=== PATIENT | female | born 2000 | race African-American/Black ===

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

== ENCOUNTER → 2022-03-09 | Outpatient (CLI) | payer BC ==
[2022-03-09 17:46] LABS: Basophils # (A) 0.06 X 10*3/uL (0.00-0.10); Basophils % (A) 0.6 %; Eosinophils # (A) 0.28 X 10*3/uL (0.04-0.35); Eosinophils % (A) 2.8 %; HCT 41.3 % (37.2-46.3); HGB 12.7 g/dL (12.0-15.0); Immature Grans, Automated 0.2 %; Lymphocytes # (A) 1.99 X 10*3/uL (0.90-5.00); Lymphocytes % (A) 20.2 %; MCH 26.3 pg (27.0-32.0); MCHC 30.8 g/dL (32.0-37.0); MCV 85.5 fL (80.0-97.0); Mean Platelet Volume 10.1 fL (9.5-12.2); Monocytes # (A) 0.69 X 10*3/uL (0.20-1.00); NRBC Per 100 WBC 0 /100 WBCS (0.0-0.0); Neutrophils # (A) 6.79 X 10*3/uL (1.80-7.70); Neutrophils % (A) 69.2 %; Platelet Count 424 X 10*3/uL (140-440); RBC 4.83 X 10*6/uL (4.10-5.20); RDW 13.8 % (11.5-14.5); WBC 9.83 X 10*3/uL (4.50-10.00)
[2022-03-09 18:13] LABS: African American GFR (CKD) 97.9 (60.0-200.0); Albumin 4.3 g/dL (3.8-4.9); Albumin/Globulin Ratio 1.4 (1.60-3.17); Anion Gap 12.8 mmol/L (10.00-18.00); BUN/Creat Ratio 19.86 Ratio (12.00-20.00); Blood Urea Nitrogen 19.3 mg/dL (9.0-27.0); Calcium 9.7 mg/dL (8.7-10.3); Carbon Dioxide 22.2 mmol/L (20.0-27.5); Globulin 3.1 g/dL (1.6-3.3); Non-African American GFR(CKD) 84.5 (60.0-200.0); Potassium 4.5 mmol/L (3.5-5.5); Total Bilirubin 0.3 mg/dL (0.30-1.20); Total Protein 7.4 g/dL (6.2-8.2)
== END | disposition home or self-care (01) ==
LOC: LABPAT 11:20
PROVIDERS: ATTEND Surgery Plastic and Reconstructive Surgery
DX: Z01.812 Encounter for preprocedural laboratory examination (principal)
CPT/HCPCS: 80053; 85025

== ENCOUNTER 2022-03-13 08:00 | Inpatient (IN) | payer BC ==
--- NOTE | 2022-02-22 16:13 | P.BASOAP ---
Subjective Progress Note Date: 02/22/22 She comes in with 15 pound weight. She has panic attacks. She is dismissed. Diet plan. Medications reviewed. Assessment/Plan Plan: Date: Initial Weight: Initial BMI: Current Weight: Current BMI: Type of Surgery: Total Volume in Band: Previous Volume: Volume Removed: Volume Added: Band Size:
[~2022-03-13 08:00] MED LIST: CHLORHEXIDINE GLUCONATE 15 ML CUP MUCOUS MEM PRN; ENOXAPARIN 40 MG/0.4 ML SYRINGE SQ PRN; PANTOPRAZOLE 40 MG/10 ML VIAL IVP PRN; ceFAZolin 3 GM in SODIUM CHLORIDE 0.9% 100 ML IVPB PRN
[2022-03-13] MEDS ORDERED: DEXAMETHASONE SOD PHOSPHATE 4 MG/ML 1 ML VIAL IV ONE (10:17)
[2022-03-13] MEDS ORDERED: HYDROmorphone 0.5 MG/0.5 ML SYRINGE IVP PRN (10:17)
[2022-03-13] MEDS ORDERED: ONDANSETRON 4 MG/2 ML VIAL IVP ONE (10:17)
--- NOTE | 2022-03-13 10:37 | P.GSHP ---
History of Present Illness H&P Date: 03/13/22 CHIEF COMPLAINT: Morbid obesity HISTORY OF PRESENT ILLNESS: Lani Lacy is a 21-year-old female who comes with lifelong morbid obesity. She has completed a medical supervised weight loss. She has completed psych assessment, cardiac assessment. She has completed bariatric assessment. At height of 5 feet 5 inches, her ideal body weight is 149 pounds. Highest weight 282 pounds, BMI 47.1. She comes in 282 pounds [id number] pounds, 6 months ago. She has gained 7 pounds in 6 months. Her body mass index is 47.1. She is 133 pounds overweight. PAST MEDICAL HISTORY: 1. Morbid obesity due to excess calories 2. Body mass index of 47.1 3. Depressive disorder 4. Gastroesophageal reflux disease 5. Insomnia 6. Seizure disorder 7. Asthma 8. ADD/ADHD 9. Anxiety disorder 10. Bipolar disorder PAST SURGICAL HISTORY: 1. Tonsillectomy 2. Adenoidectomy HOME MEDICATIONS: Home Medications Medication Instructions Recorded Confirmed Cholecalciferol [Vitamin D3 (25 5,000 unit PO DAILY 01/09/18 11/16/21 Mcg = 1000 Iu)] FLUoxetine HCL [PROzac] 60 mg PO QAM 01/09/18 11/16/21 Melatonin 5 - 10 mg PO HS 01/09/18 11/16/21 Atomoxetine HCl [Strattera] 80 mg PO QAM 04/20/21 11/16/21 Imipramine [Tofranil] 25 mg PO HS 04/20/21 11/16/21 Omeprazole 20 mg PO QAM 04/20/21 11/16/21 QUEtiapine FUMARATE [SEROquel] 200 mg PO HS 04/20/21 11/16/21 busPIRone HCL 5 mg PO TID 04/20/21 11/16/21 Albuterol Inhaler [Ventolin Hfa 1 puff IN DAILY PRN 10/20/21 11/16/21 Inhaler] Levalbuterol Hfa Inhaler [Xopenex 1 puff INHALATION DAILY PRN 10/20/21 11/16/21 Hfa Inhaler] busPIRone HCl [Buspar] 5 mg PO TID 11/16/21 11/16/21 ALLERGIES: Allergies Allergy/AdvReac Type Severity Reaction Status Date / Time No Known Allergies Allergy Verified 10/20/21 13:39 FAMILY HISTORY: She is adopted. No family history of stomach or esophageal cancer. REVIEW OF ORGAN SYSTEMS: CONSTITUTIONAL: At height of 5 feet 5 inches, her ideal body weight is 149 pounds. Highest weight 282 pounds, BMI 47.1. She comes in 282 pounds [id number] pounds, 6 months ago. She has gained 7 pounds in 6 months. Her body mass index is 47.1. She is 133 pounds overweight. HEENT: Denies any active troubles with vision or hearing. ENDOCRINE: Denies diabetes. No hypothyroidism. CARDIOVASCULAR: Has hypertensive heart disease. Has persistent tachycardia. RESPIRATORY: Has daytime somnolence. Has asthma. Has chronic obstructive pulmonary disease. GASTROINTESTINAL: Denies any bright red blood per rectum. No diarrhea. No constipation. Has gastroesophageal reflux disease. GENITOURINARY: Denies bladder urgency. No recent blood in urine MUSCULOSKELETAL: Has lower back pain and joint pain. NEURO: Has seizure disorders. PSYCH: Has depression. No suicidal ideation. Has bipolar disorder. Has anxiety. Has ADD/ADHD RHEUMATOLOGIC: No lupus. No rheumatoid arthritis. HEMATOLOGIC: Denies any abnormal bleeding or bruising. SKIN: No rash. No skin cancer. PHYSICAL EXAM: VITAL SIGNS: Height 5 foot 5 inches, weight 282 pounds. BMI 47.1 GENERAL: Well-developed in no acute distress. HEENT: No scleral icterus. Extraocular movements grossly intact. Hears conversational speech. No nasal drainage. NECK: Supple without lymphadenopathy. CHEST: Nonlabored respirations with equal bilateral excursions. CARDIOVASCULAR: Tachycardic. Distal 2+ pulses. ABDOMEN: Obese, soft, nontender, nondistended. MUSCULOSKELETAL: No clubbing, cyanosis. NEURO: No focal or lateralizing signs. Cranial nerves 2 through 12 grossly within normal limits. PSYCH: Appropriate affect. Alert and oriented to person, place and time. SKIN: Good skin turgor. Well perfused. ASSESSMENT: 1. Morbid obesity due to excess calories 2. Body mass index of 45.9, initial 3. Depressive disorder 4. Gastroesophageal reflux disease 5. Insomnia 6. Seizure disorder 7. Asthma 8. ADD/ADHD 9. Anxiety disorder 10. Bipolar disorder 11. Persistent tachycardia 12. Hypertriglyceridemia 13. Hypercholesterolemia 14. Selenium elevated. 15. Elevated LFTs 16. Seizure PLAN: 1. Bariatric options between a sleeve, band and a Keyanna-en-Y gastric bypass were reviewed in detail. The patient elected for a sleeve gastrectomy. Robotic assisted approach described. 2. The [place] [facility] Data was also reviewed with benefits and risks as described. 3. An 8 page second-generation bariatric consent form was reviewed in detail including potential of bleeding, infection, leaks, adequate weight loss, nutritional deficiencies which the patient demonstrated understanding of the risks. 4. A 2 week high-protein low caloric 800 kcal diet described to address hepatom egaly. 5. Preoperative labs including complete metabolic panel and CBC with type and screen recommended. 6. DVT prophylaxis per [place] [facility]. 7. Antibiotic prophylaxis. 8. Inpatient hospitalization anticipated for more than 2 nights. 9. All questions and concerns were addressed with the patient. 10. The patient is at elevated risk for perioperative complications with pre- existing antipsychotic medications 11. Overall, patient has expressed understanding of bariatric care including postoperative diet and commitment of lifestyle. Patient should benefit from [place] rgical intervention for correction of her morbid obesity. Past Medical History Past Medical History: Asthma, Seizure Disorder Additional Past Medical History / Comment(s): LAST SEIZURE JULY 2021. CHAKA, NEUROLOGIST. History of Any Multi-Drug Resistant Organisms: None Reported Past Surgical History: Adenoidectomy, Tonsillectomy Additional Past Surgical History / Comment(s): ORAL SURGERY. Past Anesthesia/Blood Transfusion Reactions: No Reported Reaction Additional Past Anesthesia/Blood Transfusion Reaction / Comment(s): SEVERE ANXIETY. Past Psychological History: ADD/ADHD, Anxiety, Bipolar Additional Psychological History / Comment(s): PANIC ATTACKS (PER MOTHER) Smoking Status: Never smoker, Second hand smoke exposure Past Alcohol Use History: None Reported Past Drug Use History: None Reported - Past Family History Mother Family Medical History: Unable to Obtain Medications and Allergies Home Medications Medication Instructions Recorded Confirmed Type Cholecalciferol [Vitamin D3 (25 5,000 unit PO DAILY 01/09/18 03/09/22 History Mcg = 1000 Iu)] FLUoxetine HCL [PROzac] 60 mg PO QAM 01/09/18 03/09/22 History Melatonin [Melatonin ER] 5 - 10 mg PO HS 01/09/18 03/09/22 History Atomoxetine HCl [Strattera] 80 mg PO QAM 04/20/21 03/09/22 History Omeprazole 20 mg PO QAM 04/20/21 03/09/22 History QUEtiapine FUMARATE [SEROquel] 200 mg PO HS 04/20/21 03/09/22 History busPIRone HCL 5 mg PO TID 04/20/21 03/09/22 History Albuterol Inhaler [Ventolin Hfa 1 puff IN DAILY PRN 10/20/21 03/09/22 History Inhaler] Levalbuterol Hfa Inhaler [Xopenex 1 puff INHALATION DAILY 10/20/21 03/09/22 History Hfa Inhaler] Lumateperone Tosylate [Caplyta] 42 mg PO HS 02/22/22 03/09/22 History Allergies Allergy/AdvReac Type Severity Reaction Status Date / Time No Known Allergies Allergy Verified 03/09/22 14:37
[2022-03-13] MEDS ORDERED: ACETAMINOPHEN TAB 500 MG TAB PO PRN (10:38)
[2022-03-13] MEDS ORDERED: SCOPOLAMINE 1 MG/72 HR PATCH TRANSDERM PRN (10:38)
[2022-03-13] MEDS ORDERED: LIDOCAINE 1% (10MG/ML) FOR IV START INTRADERMA ONE (13:10)
[2022-03-13] MEDS: LACTATED RINGERS 1,000 ML IV SCH ×2 (13:13→14:08)
[2022-03-13] MEDS ORDERED: KETOROLAC 15 MG/ML 1 ML VIAL ONE (14:04)
[2022-03-13] MEDS ORDERED: KETAMINE 10 MG/ML 20 ML VIAL ONE (14:04)
[2022-03-13] MEDS ORDERED: ROCURONIUM 10 MG/ML (5 ML VIAL) IV ONE (14:04)
[2022-03-13] MEDS ORDERED: SUCCINYLCHOLINE CHLORIDE 200 MG/10 ML VIAL IV ONE (14:04)
[2022-03-13] MEDS ORDERED: HYDROmorphone (PF) 1 MG/ML ONE (14:04)
[2022-03-13] MEDS ORDERED: fentaNYL (PF) 50 MCG/ML 2 ML AMP ONE (14:04)
[2022-03-13] MEDS ORDERED: PROPOFOL 10 MG/ML 20 ML VIAL IV ONE (14:04)
[2022-03-13] MEDS ORDERED: MIDAZOLAM 2 MG/2 ML VIAL ONE (14:04)
[2022-03-13] MEDS ORDERED: LIDOCAINE 2% INJ 20 MG/ML (2 ML VIAL) ONE (14:04)
[2022-03-13] MEDS ORDERED: NEOSTIGMINE 1 MG/ML 10 ML VIAL ONE (14:04)
[2022-03-13] MEDS ORDERED: GLYCOPYRROLATE 0.2 MG/ML 2 ML VIAL ONE (14:04)
[2022-03-13] MEDS ORDERED: PHENYLEPHRINE-0.9% NACL SYG 1,000 MCG/10 ML SYRINGE ONE (14:04)
[2022-03-13] MEDS ORDERED: LACTATED RINGERS 1,000 ML IV ONE (15:00)
[2022-03-13] MEDS ORDERED: BUPIVACAINE (PF) 0.25% 30 ML VIAL SQ ONE (15:02)
[2022-03-13] MEDS ORDERED: diphenhydrAMINE 50 MG/ML 1 ML VIAL IVP PRN (16:43)
[2022-03-13] MEDS ORDERED: NALOXONE 0.4 MG/ML 1 ML VIAL IV PRN ×2 (16:43→22:08)
--- NOTE | 2022-03-13 16:53 | P.OP ---
Date of Procedure: 03/13/22 Description of Procedure: SURGEON: LUDIN ADAMS MD PREOPERATIVE DIAGNOSES: 1. Morbid obesity due to excess calories 2. Body mass index of 47.1 3. Depressive disorder 4. Gastroesophageal reflux disease 5. Insomnia 6. Seizure disorder 7. Asthma 8. ADD/ADHD 9. Anxiety disorder 10. Bipolar disorder 11. Persistent tachycardia 12. Hypertriglyceridemia 13. Hypercholesterolemia 14. Selenium elevated. 15. Elevated LFTs 16. Seizure POSTOPERATIVE DIAGNOSES: 1. Morbid obesity due to excess calories 2. Body mass index of 47.1 3. Depressive disorder 4. Gastroesophageal reflux disease 5. Insomnia 6. Seizure disorder 7. Asthma 8. ADD/ADHD 9. Anxiety disorder 10. Bipolar disorder 11. Persistent tachycardia 12. Hypertriglyceridemia 13. Hypercholesterolemia 14. Selenium elevated. 15. Elevated LFTs 16. Seizure OPERATION: 1. Robotic assisted daVinci Xi laparoscopic sleeve gastrectomy with 40-[place]an bougie, multiport. 2. Intraoperative esophagogastroduodenoscopy. ANESTHESIA: Gen. local anesthetic ESTIMATED BLOOD LOSS: 5 mL SPECIMENS REMOVED: Sleeve gastrectomy COMPLICATIONS: None. FINDINGS: 1. Negative intraoperative esophagogastrojejunoscopy leak test. 2. No hepatomegaly and no large hiatus hernia. 3. Total of 6 staplers used including 2 - 60 mm green robot mary and 4 - 60 mm blue robot loads used to create the gastric sleeve. 4. Sleeve gastrectomy, 21 x 4 cm INDICATIONS: Lani Lacy is a 21-year-old female who comes with lifelong morbid obesity. She has completed a medical supervised weight loss. She has completed psych assessment, cardiac assessment. She has completed bariatric assessment. At height of 5 feet 5 inches, her ideal body weight is 149 pounds. Highest weight 282 pounds, BMI 47.1. She is 133 pounds overweight. All surgical options for morbid obesity had been described using the [place] [facility]ariat[facility] collaborative comorbidity resolution including complication risk score. A second-generation bariatric consent form was described in detail including the possibility of protein malnutrition, leaks, gastric stricture, venous thrombosis, gastroesophageal reflux disease, need for further surgery for which she demonstrated understanding. Benefits and risks of the procedure were described at length. Informed consent was obtained. DESCRIPTION: The patient was brought into the operating room theater. Preoperatively she had received Lovenox subcutaneously for DVT prophylaxis. Additionally she had Peridex oral solution as an oral decontaminant. After general induction, the abdomen was prepped and draped in standard sterile fashion. An Ioban draping was placed along the abdomen. A robotic da Ismael Xi system was prepped and primed. At 15 cm from the xiphoid, proposed port sites were marked with indelible marker along the anterior axillary line bilaterally, mid axillary line bilaterally with each ports were marked 10 to 15 cm from each other. The robotic stapler port was marked for the right midclavicular line. A 5 mm 0 degrees laparoscopic trocar entry was performed along the left upper quadrant. The abdomen was insufflated to 15 mmHg pressure was tolerated well. Diagnostic laparoscopy demonstrated no injury to bowel, viscera, or mesentery. No evidence of large hiatus hernia was identified. The liver edge was sharp consistent with 2 week low-carb high-protein diet. A 8 mm port was placed along the left upper abdominal wall after exchanging the 5 mm port. A separate 8 mm port was placed along the left lateral abdominal wall. Please note that the ports were placed at least 20 cm away from the target anatomy. Care was taken to check each robotic arms were safely away from collision with the bed or the patient. At the epigastrium, a medium sized Gerardo liver retractor was placed under direct visualization with the Iron Security Guard placed under the right shoulder of the patient. Next, 12-mm robot stapler port was placed along the right upper quadrant. The camera 8-mm port was maintained along the epigastrium. The patient was repositioned in reverse Trendelenburg position at 21-degrees after lowering the bed. The robot was docked along the left side of the patient. Using a grasper for arm 4, a vessel sealer for arm 3, including grasper for arm 1, the robotic system was docked and primed as described. Instruments were interchanged by the assistant womens volleyball coach for stapler loads. The camera was placed at 30- degrees down. I had sat at the console. The pylorus was identified and 6 cm proximally along the greater curvature of the stomach, the short gastrics were mobilized upwards to the angle of His using a vessel sealer. Hemostasis was excellent dur ing this portion of the procedure. Next, the upper pole of the stomach was adherent to the left olivier, which was gently dissected free using atraumatic grasper. I went to the head of the bed and placed 40-[place]an blunt bougie into the stomach. The bougie was readjusted by the nurse research methodologist. Robotic stapler green load 60 mm 2 followed by blue 60 mm x 4 loads were used to create the sleeve. Initial firing was across the antrum of the stomach towards the angle of His. The staple line was linear without corkscrewing. The space from the angularis incisura of the sleeve was approximately 4 cm. The spleen was buried along the gastric cardia with careful dissection performed without injury to the spleen. I then went to the head of the bed to perform the intraoperative esophagogastroduodenoscopy leak test. The bougie was withdrawn. The upper pole of the stomach was bathed using normal saline solution. The scope was withdrawn with careful inspection along the staple line for which no leaks were found along the entire length. Additionally,the sleeve was completely hemostatic without any encroachment along the angularis incisura. Its topology was a soft "J". No stricture was encountered upon placement of the scope. The GI tract was desufflated. The patient tolerated this portion of the procedure well. The scope was completely withdrawn. The robot was undocked. I then rescrubbed into case, whereby the irrigation fluid was aspirated from the abdominal cavity. Tisseel fibrin sealant was placed along the entire staple length. Once dried the Gerardo liver retractor was removed. Attention was now brought to removal of the specimen. The distal end of the sleeve gastrectomy specimen was brought out through the 12 mm port at the left upper quadrant. The specimen was gently removed en total. No contamination had occurred during this process. All instruments and pneumoperitoneum including irrigation fluid was removed from the abdominal cavity. The 12 mm port site was closed using 0-Vicryl and [place]esto Gallegos and irrigated with diluted hydrogen peroxide. The final incisions were closed using subcuticular interrupted suture of 4-0 Monocryl. Exofin was applied to the skin once the skin had been cleansed. OptiFoam dressing was placed along the stomach extraction site. The sleeve specimen was measured and checked also for leaks which none were found. At the end of the procedure, needle, sponge, and instrument count was verified correct by the surgical appliances salesperson. The patient was taken to the postanesthesia care unit in stable condition. She had tolerated the procedure well. Intraoperative films and findings were reviewed with the patient's family.
[2022-03-13] MEDS: ONDANSETRON 4 MG/2 ML VIAL IVP SCH (18:36)
[2022-03-13] MEDS: ACETAMINOPHEN IV (For NPO) 1,000 MG in EMPTY BAG 1 BAG IVPB SCH (19:52)
[2022-03-13] MEDS ORDERED: DEXAMETHASONE SOD PHOSPHATE 10 MG/ML 1 ML VIAL IVP ONE (20:00)
[2022-03-13] MEDS: ALBUTEROL NEBULIZED 2.5 MG/3 ML INHALATION SCH (20:15)
[2022-03-13] MEDS: SODIUM CHLORIDE 0.9% 1,000 ML IV SCH ×2 (20:29→21:51)
[2022-03-13] MEDS: SIMETHICONE 40 MG/0.6 ML DROPS 2,000 MG/30 ML BOTTLE PO SCH (21:53)
[2022-03-13] MEDS: HYOSCYAMINE ORAL DROPS 1.875 MG/15 ML BOTTLE PO SCH (21:53)
[2022-03-13] MEDS ORDERED: fentaNYL PCA 500 MCG/50 ML BAG IV PRN (22:08)
[2022-03-13] MEDS ORDERED: HYDROmorphone 1 MG/ML 1 ML SYRINGE IVP PRN (22:09)
[2022-03-13] MEDS: 0.9% NACL WITH KCL 20 MEQ/L 1,000 ML IV SCH (22:24)
[2022-03-13] MEDS: ceFAZolin 3 GM in SODIUM CHLORIDE 0.9% 100 ML IVPB SCH (23:25)
[2022-03-13] MEDS: PANTOPRAZOLE 40 MG/10 ML VIAL IV SCH (23:25)
[2022-03-14] MEDS: ONDANSETRON 4 MG/2 ML VIAL IVP SCH ×3 (00:24→12:07)
[2022-03-14] MEDS: DEXAMETHASONE SOD PHOSPHATE 4 MG/ML 1 ML VIAL IVP SCH ×3 (00:24→12:07)
[2022-03-14] MEDS: HYOSCYAMINE ORAL DROPS 1.875 MG/15 ML BOTTLE PO SCH ×3 (00:26→12:11)
[2022-03-14] MEDS: SIMETHICONE 40 MG/0.6 ML DROPS 2,000 MG/30 ML BOTTLE PO SCH ×3 (00:26→12:11)
[2022-03-14] MEDS: ACETAMINOPHEN IV (For NPO) 1,000 MG in EMPTY BAG 1 BAG IVPB SCH ×3 (02:39→13:28)
[2022-03-14] MEDS: 0.9% NACL WITH KCL 20 MEQ/L 1,000 ML IV SCH ×2 (05:30→07:27)
[2022-03-14] MEDS: ceFAZolin 3 GM in SODIUM CHLORIDE 0.9% 100 ML IVPB SCH (05:31)
[2022-03-14 07:16] VITALS: RESP 16
[2022-03-14] MEDS: LACTATED RINGERS 1,000 ML IV SCH (07:28)
[2022-03-14] MEDS ORDERED: 0.9% NACL WITH KCL 20 MEQ/L 1,000 ML IV SCH (08:00)
[2022-03-14] MEDS: PANTOPRAZOLE 40 MG/10 ML VIAL IV SCH (08:03)
[2022-03-14] MEDS: ALBUTEROL NEBULIZED 2.5 MG/3 ML INHALATION SCH ×3 (08:17→16:25)
[2022-03-14] MEDS ORDERED: ENOXAPARIN 40 MG/0.4 ML SYRINGE SQ SCH (09:00)
--- NOTE | 2022-03-14 09:39 | P.PN ---
Subjective Progress Note Date: 03/14/22 Pain is controlled. Patient getting nebulizer treatment. Tolerating liquids. No reports of nausea or vomiting. She looks well. Pending upper GI. Start bariatric clears. Anticipated discharge today. Discharge instructions reviewed with patient and mother preoperatively. Bariatric center staff to revisit this afternoon. Objective - Vital Signs Vital signs: Vital Signs Temp 98.6 F 03/14/22 07:14 Pulse 93 03/14/22 08:27 Resp 16 03/14/22 07:14 BP 130/78 03/14/22 07:14 Pulse Ox 93 L 03/14/22 08:17 FiO2 Intake & Output 03/13/22 03/14/22 03/14/22 18:59 06:59 18:59 Intake Total 1750 Output Total 20 815 400 Balance 1730 -815 -400 Weight 128.3 kg 128.3 kg Intake: IV 1750 Output: Urine 815 400 Straight 815 Estimated Blood Loss 20 Other: # Voids 0
--- NOTE | 2022-03-14 09:53 | FL ---
EXAMINATION TYPE: FL UGI DATE OF EXAM: 03/14/2022 COMPARISON: NONE HISTORY: Postop bariatric surgery TECHNIQUE: A single contrast UGI study is performed. A total of 39 seconds of fluoroscopic time was utilized during procedure and 5 images obtained. FINDINGS: Fingerprint Technician image of the abdomen shows no gross abnormality. The esophagus shows normal motility and emptying into the stomach. No evidence of obstruction or ext ravasation noted. Could not exclude a tiny amount of free air likely postsurgical. Subsegmental rios es at both lung bases likely in the basis of postoperative atelectasis IMPRESSION: No evidence of obstruction or extravasation.
[2022-03-14 11:07] LABS: Basophils # (A) 0 X 10*3/uL (0.00-0.10); Basophils % (A) 0 %; Eosinophils # (A) 0 X 10*3/uL (0.04-0.35); Eosinophils % (A) 0 %; HCT 37.9 % (37.2-46.3); HGB 11.9 g/dL (12.0-15.0); Immature Grans, Automated 0.3 %; Lymphocytes # (A) 0.38 X 10*3/uL (0.90-5.00); MCH 26.7 pg (27.0-32.0); MCHC 31.4 g/dL (32.0-37.0); MCV 85.2 fL (80.0-97.0); Mean Platelet Volume 10.7 fL (9.5-12.2); Monocytes % (A) 3.2 %; NRBC Per 100 WBC 0 /100 WBCS (0.0-0.0); Neutrophils % (A) 90.5 %; Platelet Count 352 X 10*3/uL (140-440); RBC 4.45 X 10*6/uL (4.10-5.20); RDW 13.6 % (11.5-14.5)
[2022-03-14 11:21] VITALS: BMI 47.0
[2022-03-14 11:33] LABS: African American GFR (CKD) 123.9 (60.0-200.0); Anion Gap 13.7 mmol/L (10.00-18.00); Blood Urea Nitrogen 8.2 mg/dL (9.0-27.0); Calcium 8.9 mg/dL (8.7-10.3); Carbon Dioxide 17.3 mmol/L (20.0-27.5); Non-African American GFR(CKD) 106.9 (60.0-200.0); Phosphorus 3.3 mg/dL (2.4-5.1); Potassium 4.7 mmol/L (3.5-5.5)
[2022-03-14 11:37] LABS: Magnesium 1.8 mg/dL (1.5-2.4)
[2022-03-14 11:46] VITALS: BP 130/80; TEMP 98.4
[2022-03-14 16:38] VITALS: PULSE 85
--- NOTE | 2022-03-14 17:31 | P.DS ---
Providers Date of admission: 03/13/22 12:07 Expected date of discharge: 03/14/22 Attending physician: Nettie Simmons Primary care physician: Lance Mosley Plan - Discharge Summary Discharge Rx Participant: No New Discharge Prescriptions: New Omeprazole [PriLOSEC] 40 mg PO DAILY #30 cap Acetaminophen Tab [Tylenol Tab] 1,000 mg PO Q6HR PRN #30 tablet PRN Reason: Pain bisacodyL [Dulcolax] 5 mg PO DAILY PRN #10 tab PRN Reason: Constipation Simethicone 40 mg/0.6 ml Drops [Mylicon Drops] 40 mg PO PCHS PRN #30 ml PRN Reason: Gas Ondansetron Odt [Zofran Odt] 4 mg PO Q8HR PRN #9 tab PRN Reason: Nausea Continue Melatonin [Melatonin ER] 5 - 10 mg PO HS FLUoxetine HCL [PROzac] 60 mg PO QAM Atomoxetine HCl [Strattera] 80 mg PO QAM QUEtiapine FUMARATE [SEROquel] 200 mg PO HS Albuterol Inhaler [Ventolin Hfa Inhaler] 1 puff IN DAILY PRN PRN Reason: Shortness Of Breath Or Wheezing busPIRone HCL 5 mg PO TID Levalbuterol Hfa Inhaler [Xopenex Hfa Inhaler] 1 puff INHALATION DAILY Lumateperone Tosylate [Caplyta] 42 mg PO HS Discontinued Cholecalciferol [Vitamin D3 (25 Mcg = 1000 Iu)] 5,000 unit PO DAILY Omeprazole 20 mg PO QAM Discharge Medication List FLUoxetine HCL [PROzac] 60 mg PO QAM 01/09/18 [History] Melatonin [Melatonin ER] 5 - 10 mg PO HS 01/09/18 [History] Atomoxetine HCl [Strattera] 80 mg PO QAM 04/20/21 [History] QUEtiapine FUMARATE [SEROquel] 200 mg PO HS 04/20/21 [History] busPIRone HCL 5 mg PO TID 04/20/21 [History] Albuterol Inhaler [Ventolin Hfa Inhaler] 1 puff IN DAILY PRN 10/20/21 [History] Levalbuterol Hfa Inhaler [Xopenex Hfa Inhaler] 1 puff INHALATION DAILY 10/20/21 [History] Lumateperone Tosylate [Caplyta] 42 mg PO HS 02/22/22 [History] Acetaminophen Tab [Tylenol Tab] 1,000 mg PO Q6HR PRN #30 tablet 03/14/22 [Rx] Omeprazole [PriLOSEC] 40 mg PO DAILY #30 cap 03/14/22 [Rx] Ondansetron Odt [Zofran Odt] 4 mg PO Q8HR PRN #9 tab 03/14/22 [Rx] Simethicone 40 mg/0.6 ml Drops [Mylicon Drops] 40 mg PO PCHS PRN #30 ml 03/14/22 [Rx] bisacodyL [Dulcolax] 5 mg PO DAILY PRN #10 tab 03/14/22 [Rx] Follow up [facility]ment(s[facility] [facility] [place] [place] [facility] - 03/17/22 9:00 am Patient Instructions/Handouts: *Surgery [facility] - Scopalamine Patch Instructions, Nutrition after Bariatric Surgery (DC), Laparoscopic Sleeve Gastrectomy (DC) Activity/Diet/Wound Care/Special Instructions: Liquid diet only for 2 weeks until Apr 03 No lifting over 4 pounds in 4 weeks, Apr 13December Shower. No soaking in bath tubs, until Apr 03 Please notify your surgeon if you develop nausea and vomiting including new onset of abdominal pain. Continue to use incentive spirometry to prevent pneumonias. Please continue to ambulate at home to prevent blood clots in legs. Follow-up at the bariatric center. May shower. Dressings to be discontinued by surgeon in the office. Drink 64 oz of fluid daily. Start protein shakes on . Notify bariatric center for temp over 101.0, increased pain, drainage from incisions. No straws or carbonated beverages. Liquid diet only. Sugar content should be less than 6 g to avoid dumping syndrome. Take MOM for constipation. CRUSH, OPEN, OR CUT TABLETS LARGER THAN A SIZE OF A TIC TAC Discharge Disposition: HOME SELF-CARE
== END 2022-03-14 18:51 | disposition home or self-care (01) | DRG 621 ==
LOC: 2ORMAIN 12:07 → 4SSUR 17:41
PROVIDERS: ADMIT Surgery Plastic and Reconstructive Surgery; ATTEND Surgery Plastic and Reconstructive Surgery
PROC: 8E0W4CZ Robotic Assisted Procedure of Trunk Region, Percutaneous Endoscopic Approach (ICD-10-PCS; principal; 2022-03-13 13:25)
PROC: 0DB64Z3 Excision of Stomach, Percutaneous Endoscopic Approach, Vertical (ICD-10-PCS; principal; 2022-03-13 13:25)
PROC: 0DJ08ZZ Inspection of Upper Intestinal Tract, Via Natural or Artificial Opening Endoscopic (ICD-10-PCS; principal; 2022-03-13 13:25)
DX: E66.01 Morbid (severe) obesity due to excess calories (principal); I11.9 Hypertensive heart disease without heart failure; E78.00 Pure hypercholesterolemia, unspecified; F31.9 Bipolar disorder, unspecified; J44.9 Chronic obstructive pulmonary disease, unspecified; G40.909 Epilepsy, unspecified, not intractable, without status epilepticus; E78.1 Pure hyperglyceridemia; K21.9 Gastro-esophageal reflux disease without esophagitis; G47.00 Insomnia, unspecified; F90.9 Attention-deficit hyperactivity disorder, unspecified type; F41.0 Panic disorder [episodic paroxysmal anxiety]; R79.89 Other specified abnormal findings of blood chemistry; Z77.22 Contact with and (suspected) exposure to environmental tobacco smoke (acute) (chronic); Z79.899 Other long term (current) drug therapy
CPT/HCPCS: 74240; 80051; 81025; 82310; 82565; 83735; 84100; 84520; 84703; 85025; 86850; 86900; 86901; 88307; 94640; 94760

== ENCOUNTER → 2022-03-17 | Outpatient (CLI) | payer BC ==
[2022-03-17 09:45] VITALS: BMI 47.2
--- NOTE | 2022-03-17 10:01 | P.PN ---
Subjective Progress Note Date: 03/17/22 Not drinking enough. Urinate 1x per day. Less than 1 water bottle per day. Movement advised. No infection. FU 1 week. Objective - Vital Signs Vital signs: Vital Signs Temp 98.6 F 03/17/22 09:35 Pulse 117 H 03/17/22 09:35 Resp BP 110/67 03/17/22 09:35 Pulse Ox FiO2 Intake & Output 03/16/22 03/17/22 03/17/22 18:59 06:59 18:59 Weight 128.82 kg
[2022-03-17 10:11] VITALS: BP 81/66; PULSE 103; RESP 18; TEMP 98.2
[2022-03-17] MEDS: SODIUM CHLORIDE 0.9% 1,000 ML IV SCH ×2 (10:14→11:16)
== END | disposition home or self-care (01) ==
LOC: BARWHC3 09:14
PROVIDERS: ATTEND Surgery Plastic and Reconstructive Surgery
DX: E86.0 Dehydration (principal)
CPT/HCPCS: 96360; 96361; 99211

== ENCOUNTER → 2022-04-05 | Outpatient (CLI) | payer BC ==
[2022-04-05 14:26] VITALS: BP 103/70; PULSE 102; TEMP 98.4; BMI 44.2
--- NOTE | 2022-04-05 14:32 | P.BASOAP ---
Subjective Progress Note Date: 04/05/22 She has lost moderate weight. No reflux. She is doing fantastic. Follow up in May. She has new red incisoin. Objective - Vital Signs Vital signs: Vital Signs Temp 98.4 F 04/05/22 14:23 Pulse 102 H 04/05/22 14:23 Resp BP 103/70 04/05/22 14:23 Pulse Ox FiO2 Intake & Output 04/04/22 04/05/22 04/05/22 18:59 06:59 18:59 Weight 120.656 kg Assessment/Plan Plan: Date: 04/05/22 Initial Weight: Initial BMI: Current Weight: 120.656 kg Current BMI: 44.2 Type of Surgery: Total Volume in Band: Previous Volume: Volume Removed: Volume Added: Band Size:
== END | disposition home or self-care (01) ==
LOC: BARWHC3 13:26
PROVIDERS: ATTEND Surgery Plastic and Reconstructive Surgery
DX: E66.01 Morbid (severe) obesity due to excess calories (principal); Z68.41 Body mass index [BMI] 40.0-44.9, adult
CPT/HCPCS: 99211

== ENCOUNTER → 2022-05-26 | Outpatient (CLI) | payer BC ==
[2022-05-26 15:41] LABS: Partial Thromboplastin Time 25.6 sec (22.0-30.0); Prothrombin Time 10.8 sec (9.0-12.0)
[2022-05-26 22:43] LABS: HCT 40.6 % (37.2-46.3); MCH 26.8 pg (27.0-32.0); MCV 83.7 fL (80.0-97.0); Mean Platelet Volume 10.2 fL (9.5-12.2); NRBC Per 100 WBC 0 /100 WBCS (0.0-0.0); Platelet Count 299 X 10*3/uL (140-440); RBC 4.85 X 10*6/uL (4.10-5.20); RDW 16.3 % (11.5-14.5); WBC 6.31 X 10*3/uL (4.50-10.00)
[2022-05-26 23:37] LABS: Chol/HDL Ratio 4.22 Ratio; LDL Cholesterol,Calculated 135.9 mg/dL (0.0-131.0); Prealbumin 20.3 mg/dL (18.0-42.0); VLDL Calculation 18.18 mg/dL (5.00-40.00)
[2022-05-27 00:45] LABS: % Iron Saturation 30.29 (12.00-45.00); ALT 42 U/L (8-44); AST 34 U/L (13-35); African American GFR (CKD) 87.2 (60.0-200.0); Albumin/Globulin Ratio 1.49 (1.60-3.17); Alkaline Phosphatase 111 U/L (41-126); BUN/Creat Ratio 6.39 Ratio (12.00-20.00); Blood Urea Nitrogen 6.8 mg/dL (9.0-27.0); Carbon Dioxide 21.9 mmol/L (20.0-27.5); Chloride 102 mmol/L (96-109); Ferritin 26.4 ng/mL (10.0-291.0); Globulin 2.7 g/dL (1.6-3.3); Glucose 87 mg/dL (70-110); Iron 106 ug/dL (50-170); Non-African American GFR(CKD) 75.2 (60.0-200.0); Phosphorus 2.9 mg/dL (2.4-5.1); Potassium 3.8 mmol/L (3.5-5.5); Sodium 139 mmol/L (135-145); Total Iron Binding Capacity 350 ug/dL (228-460); Total Protein 6.8 g/dL (6.2-8.2)
== END | disposition home or self-care (01) ==
LOC: LABWHC1 14:54
PROVIDERS: ATTEND Surgery Plastic and Reconstructive Surgery
DX: E66.01 Morbid (severe) obesity due to excess calories (principal); E89.1 Postprocedural hypoinsulinemia; D50.8 Other iron deficiency anemias; D50.9 Iron deficiency anemia, unspecified; K91.2 Postsurgical malabsorption, not elsewhere classified; E44.0 Moderate protein-calorie malnutrition; E44.1 Mild protein-calorie malnutrition; E46 Unspecified protein-calorie malnutrition; E45 Retarded development following protein-calorie malnutrition; E55.9 Vitamin D deficiency, unspecified; K74.1 Hepatic sclerosis; N19 Unspecified kidney failure; T56.894A Toxic effect of other metals, undetermined, initial encounter; K50.90 Crohn's disease, unspecified, without complications
CPT/HCPCS: 36415; 80053; 80061; 82306; 82525; 82607; 82728; 82746; 83036; 83540; 83550; 83735; 83970; 84100; 84134; 84255; 84425; 84443; 84590; 85027; 85610; 85730

== ENCOUNTER → 2022-08-30 | Outpatient (CLI) | payer BC ==
[2022-08-30 16:49] LABS: Partial Thromboplastin Time 25.7 sec (22.0-30.0); Prothrombin Time 10.4 sec (9.0-12.0)
[2022-08-30 23:46] LABS: HCT 40.2 % (37.2-46.3); HGB 12.5 g/dL (12.0-15.0); MCH 28.3 pg (27.0-32.0); MCHC 31.1 g/dL (32.0-37.0); MCV 91.2 fL (80.0-97.0); Mean Platelet Volume 10.4 fL (9.5-12.2); NRBC Per 100 WBC 0 /100 WBCS (0.0-0.0); Platelet Count 346 X 10*3/uL (140-440); RBC 4.41 X 10*6/uL (4.10-5.20); RDW 15.2 % (11.5-14.5); WBC 9.15 X 10*3/uL (4.50-10.00)
[2022-08-31 00:42] LABS: % Iron Saturation 23.16 (12.00-45.00); ALT 19 U/L (8-44); AST 21 U/L (13-35); African American GFR (CKD) 95.3 (60.0-200.0); Albumin 3.9 g/dL (3.8-4.9); Albumin/Globulin Ratio 1.23 (1.60-3.17); Alkaline Phosphatase 104 U/L (41-126); BUN/Creat Ratio 8.07 Ratio (12.00-20.00); Calcium 9.2 mg/dL (8.7-10.3); Carbon Dioxide 23.4 mmol/L (20.0-27.5); Chloride 104 mmol/L (96-109); Ferritin 24.5 ng/mL (10.0-291.0); Globulin 3.2 g/dL (1.6-3.3); Glucose 74 mg/dL (70-110); Iron 74 ug/dL (50-170); Magnesium 1.9 mg/dL (1.5-2.4); Non-African American GFR(CKD) 82.2 (60.0-200.0); Phosphorus 2.6 mg/dL (2.4-5.1); Potassium 4.1 mmol/L (3.5-5.5); Sodium 139 mmol/L (135-145); Total Iron Binding Capacity 318 ug/dL (228-460); Total Protein 7.1 g/dL (6.2-8.2)
[2022-08-31 00:56] LABS: Chol/HDL Ratio 3.79 Ratio; LDL Cholesterol,Calculated 116.6 mg/dL (0.0-131.0); Prealbumin 21.3 mg/dL (18.0-42.0)
== END | disposition home or self-care (01) ==
LOC: LABPAT 15:18
PROVIDERS: ATTEND Surgery Plastic and Reconstructive Surgery
DX: E66.01 Morbid (severe) obesity due to excess calories (principal); D50.8 Other iron deficiency anemias; K91.2 Postsurgical malabsorption, not elsewhere classified; E44.0 Moderate protein-calorie malnutrition; E45 Retarded development following protein-calorie malnutrition; K74.1 Hepatic sclerosis; N19 Unspecified kidney failure; T56.894A Toxic effect of other metals, undetermined, initial encounter; K50.90 Crohn's disease, unspecified, without complications
CPT/HCPCS: 36415; 80053; 80061; 82306; 82525; 82607; 82728; 82746; 83036; 83540; 83550; 83735; 83970; 84100; 84134; 84255; 84425; 84443; 84590; 84630; 85027; 85610; 85730

== ENCOUNTER → 2022-09-13 | Outpatient (CLI) | payer BC ==
[2022-09-13 15:05] VITALS: BP 104/69; PULSE 67; TEMP 97.9; BMI 39.2
--- NOTE | 2022-09-13 15:35 | P.BASOAP ---
Subjective Progress Note Date: 09/13/22 Clinically doing well. She is lost 60 pounds total lifetime. She denies reflux. Denies abdominal pain. Protein intake subpar at 30 g daily. Alternatives of protein shakes reviewed. Increased protein intake to at least 75-80 g reinforced. Recommend bariatric last. Follow-up per protocol. Objective - Vital Signs Vital signs: Vital Signs Temp 97.9 F 09/13/22 15:02 Pulse 67 09/13/22 15:02 Resp BP 104/69 09/13/22 15:02 Pulse Ox FiO2 Intake & Output 09/12/22 09/13/22 09/13/22 18:59 06:59 18:59 Weight 107.048 kg Assessment/Plan Plan: Date: 09/13/22 Initial Weight: Initial BMI: Current Weight: 107.048 kg Current BMI: 39.2 Type of Surgery: Total Volume in Band: Previous Volume: Volume Removed: Volume Added: Band Size:
== END ==
LOC: BARWHC3 14:16
PROVIDERS: ATTEND Surgery Plastic and Reconstructive Surgery
DX: E66.01 Morbid (severe) obesity due to excess calories (principal); Z68.39 Body mass index [BMI] 39.0-39.9, adult; Z71.3 Dietary counseling and surveillance
CPT/HCPCS: 97803; 99211

== ENCOUNTER → 2022-12-13 | Outpatient (CLI) | payer BC ==
[2022-12-13 16:08] VITALS: BP 122/82; PULSE 91; TEMP 97.6; BMI 35.9
--- NOTE | 2022-12-13 16:23 | P.BASOAP ---
Subjective Progress Note Date: 12/13/22 She denies abdominal pain. Had black out x 2. No GErd. Wants to get down to 200 pounds. No food diary journal. Needs labs. Lookig into breast rduction surgery for back pain. Therapist. Objective - Vital Signs Vital signs: Vital Signs Temp 97.6 F 12/13/22 16:06 Pulse 91 12/13/22 16:06 Resp BP 122/82 12/13/22 16:06 Pulse Ox FiO2 Intake & Output 12/12/22 12/13/22 12/13/22 18:59 06:59 18:59 Weight 97.976 kg Assessment/Plan Plan: Date: 12/13/22 Initial Weight: Initial BMI: Current Weight: 97.976 kg Current BMI: 35.9 Type of Surgery: Total Volume in Band: Previous Volume: Volume Removed: Volume Added: Band Size:
== END ==
LOC: BARWHC3 14:47
PROVIDERS: ATTEND Surgery Plastic and Reconstructive Surgery
DX: E66.01 Morbid (severe) obesity due to excess calories (principal); Z68.35 Body mass index [BMI] 35.0-35.9, adult
CPT/HCPCS: 97803; 99211

== ENCOUNTER → 2023-03-08 | Outpatient (CLI) | payer BC ==
[2023-03-08 20:07] LABS: Prealbumin 25.5 mg/dL (18.0-42.0)
[2023-03-08 20:16] LABS: HGB 13.2 d/dL (12.0-15.0); MCHC 32.2 d/dL (32.0-37.0); MCV 93.2 FL (80.0-97.0); Mean Platelet Volume 10.6 FL (9.5-12.2); NRBC Per 100 WBC 0 X 10*3/uL (0.00-0.01); Platelet Count 301 X 10*3/uL (140-440); RDW 13.4 % (11.5-14.5); WBC 7.99 X 10*3/uL (4.50-10.00)
[2023-03-08 20:28] LABS: % Iron Saturation 34.43 (12.00-45.00); ALT 19 U/L (8-44); AST 19 U/L (13-35); Albumin 4.2 d/dL (3.8-4.9); Albumin/Globulin Ratio 1.56 Ratio (1.60-3.17); Alkaline Phosphatase 97 U/L (41-126); BUN/Creat Ratio 13.78 Ratio (12.00-20.00); Blood Urea Nitrogen 12.4 mg/dL (9.0-27.0); Calcium 9.5 mg/dL (8.7-10.3); Carbon Dioxide 26.9 mmol/L (21.6-31.8); Chloride 107 mmol/L (96-109); Chol/HDL Ratio 3.41 Ratio; Ferritin 47.8 ng/mL (10.0-291.0); Globulin 2.7 d/dL (1.6-3.3); Glucose 69 mg/dL (70-110); Iron 105 UG/DL (50-170); LDL Cholesterol,Calculated 116.3 mg/dL (0.0-131.0); Phosphorus 3.2 mg/dL (2.4-5.1); Potassium 4.5 mmol/L (3.5-5.5); Sodium 141 mmol/L (135-145); Total Bilirubin 0.3 mg/dL (0.3-1.2); Total Iron Binding Capacity 305 UG/DL (228-460); Total Protein 6.9 d/dL (6.2-8.2); VLDL Calculation 12.96 mg/dL (5.00-40.00)
[2023-03-08 20:49] LABS: INR <0.93 sec (0.93-1.11); Prothrombin Time 10.3 sec (9.9-11.9)
[2023-03-09 12:49] LABS: Zinc, Serum 50 ug/dL (60-130)
== END | disposition home or self-care (01) ==
LOC: LABWHC1 15:17
PROVIDERS: ATTEND Surgery Plastic and Reconstructive Surgery
DX: D50.8 Other iron deficiency anemias (principal); D50.9 Iron deficiency anemia, unspecified; K91.2 Postsurgical malabsorption, not elsewhere classified; E44.0 Moderate protein-calorie malnutrition; E44.1 Mild protein-calorie malnutrition; E45 Retarded development following protein-calorie malnutrition; E55.9 Vitamin D deficiency, unspecified; K74.1 Hepatic sclerosis; K76.9 Liver disease, unspecified; N19 Unspecified kidney failure; T56.894A Toxic effect of other metals, undetermined, initial encounter
CPT/HCPCS: 36415; 80053; 80061; 82306; 82525; 82607; 82728; 82746; 83036; 83540; 83550; 83735; 83970; 84100; 84134; 84255; 84425; 84443; 84590; 84630; 85027; 85610

== ENCOUNTER 2023-05-05 20:24 | Emergency (ER) | payer BC ==
[2023-05-05] MEDS ORDERED: KETOROLAC 15 MG/ML 1 ML VIAL IVP STA (21:00)
[2023-05-05] MEDS ORDERED: SODIUM CHLORIDE 0.9% 1,000 ML IV STA (21:01)
[2023-05-05] MEDS ORDERED: MORPHINE SULFATE 2 MG/ML SYRINGE IVP STA (21:01)
--- NOTE | 2023-05-05 21:19 | ED ---
Abdominal Pain HPI - General Source: patient, family, RN notes reviewed Mode of arrival: wheelchair Limitations: no limitations - History of Present Illness MD Complaint: abdominal pain Onset/Timin -: days(s) <Sujatha Polo - Last Filed: 05/05/23 23:19> <Patricio Ulloa - Last Filed: 05/06/23 04:45> - General Chief Complaint: Abdominal Pain Stated Complaint: abd pain Time Seen by Provider: 05/05/23 20:41 - History of Present Illness Initial Comments: This is a 22-year-old female who presents to the emergency department for left- sided abdominal pain. Symptoms started 4 days ago. Denies any nausea or vomiting. She did have gastric sleeve with Dr. Simmons one year ago, and is concerned about a hernia. She has however been recovering from surgery well without any problems. She was able to lose over 100 pounds. She's not had any changes in bowel/bladder habits. States that she is able to feel the pain go from the left upper quadrant down to her feet. Her father states that when she ambulates, she holds herself in the abdomen due to the pain. Denies any fevers, chills, sore throat, cough, dyspnea, chest pain, palpitations, nausea, vomiting, diarrhea, back pain, or headaches. (Sujatha Polo) - Related Data Home Medications Medication Instructions Recorded Confirmed FLUoxetine HCL [PROzac] 40 mg PO QAM 01/09/18 03/21/23 Melatonin [Melatonin ER] 5 - 10 mg PO 01/09/18 03/21/23 Atomoxetine HCl [Strattera] 80 mg PO QAM 04/20/21 03/21/23 QUEtiapine FUMARATE [SEROquel] 200 mg PO HS 04/20/21 03/21/23 busPIRone HCL 5 mg PO TID 04/20/21 03/21/23 Albuterol Inhaler [Ventolin Hfa 1 puff IN DAILY PRN 10/20/21 03/21/23 Inhaler] Levalbuterol Hfa Inhaler [Xopenex 1 puff INHALATION DAILY 10/20/21 03/21/23 Hfa Inhaler] Lumateperone Tosylate [Caplyta] 42 mg PO HS 02/22/22 03/21/23 Previous Rx's Medication Instructions Recorded Nystatin 100,000 Unit/gm Powd 1 applic TOPICAL BID #60 gm 03/21/23 [Mycostatin Powder] Ketorolac [Toradol] 10 mg PO TID #30 tab 05/06/23 Allergies Allergy/AdvReac Type Severity Reaction Status Date / Time No Known Allergies Allergy Verified 05/05/23 20:37 Review of Systems ROS Other: All systems not noted in ROS Statement are negative. <Sujatha Polo - Last Filed: 05/05/23 23:19> ROS Other: All systems not noted in ROS Statement are negative. <Patricio Ulloa - Last Filed: 05/06/23 04:45> ROS Statement: Those systems with pertinent positive or pertinent negative responses have been documented in the HPI. Past Medical History Past Medical History: Asthma, Seizure Disorder Additional Past Medical History / Comment(s): LAST SEIZURE JULY 2021. SEEING A NEUROLOGIST. History of Any Multi-Drug Resistant Organisms: None Reported Past Surgical History: Adenoidectomy, Bariatric Surgery, Tonsillectomy Additional Past Surgical History / Comment(s): oral surgery. gastric sleeve 03/13/22 Past Anesthesia/Blood Transfusion Reactions: No Reported Reaction Additional Past Anesthesia/Blood Transfusion Reaction / Comment(s): SEVERE ANXIETY. Past Psychological History: ADD/ADHD, Anxiety, Bipolar Smoking Status: Never smoker Past Alcohol Use History: None Reported Past Drug Use History: None Reported - Past Family History Mother Family Medical History: Unable to Obtain <Sujatha Polo - Last Filed: 05/05/23 23:19> General Exam Limitations: no limitations General appearance: alert, in no apparent distress Head exam: Present: atraumatic, normocephalic, normal inspection Respiratory exam: Present: normal lung sounds bilaterally. Absent: respiratory distress, wheezes, rales, rhonchi, stridor Cardiovascular Exam: Present: regular rate, normal rhythm, normal heart sounds. Absent: systolic murmur, diastolic murmur, rubs, gallop, clicks GI/Abdominal exam: Present: soft, tenderness (LUQ), normal bowel sounds. Absent: distended Neurological exam: Present: alert, oriented X3, CN II-XII intact Psychiatric exam: Present: normal affect, normal mood Skin exam: Present: warm, dry, intact, normal color. Absent: rash <Sujatha Polo - Last Filed: 05/05/23 23:19> Course Vital Signs 05/05/23 05/05/23 05/06/23 20:33 21:54 03:00 Temperature 98 F Pulse Rate 125 H 95 67 Respiratory 20 18 18 Rate Blood Pressure 101/58 110/68 112/76 O2 Sat by Pulse 100 100 99 Oximetry 05/06/23 04:43 Temperature 98.2 F Pulse Rate 78 Respiratory 16 Rate Blood Pressure 113/73 O2 Sat by Pulse 98 Oximetry Medical Decision Making - Lab Data Result diagrams: 05/05/23 21:19 05/05/23 21:19 - Radiology Data Radiology results: report reviewed, image reviewed <Sujatha Polo - Last Filed: 05/05/23 23:19> - Lab Data Result diagrams: 05/05/23 21:19 05/05/23 21:19 <Patricio Ulloa - Last Filed: 05/06/23 04:45> - Medical Decision Making This is a 22-year-old female who presents to the emergency department for abdominal pain. Was pt. sent in by a medical professional or institution? @ -No Did you speak to anyone other than the patient for history? @ -Her father provided the information that when she walks, she is holding the left side of her abdomen. Did you review nursing and triage notes? @ -Yes, and I agree, it is accurate with regards to the patient's symptoms. Were old charts reviewed? @ -No Differential Diagnosis? @ -Differential Abdominal Pain Women: Appendicitis, Cholecystitis, diverticulosis, ischemic bowel, pancreatitis, he patitis, UTI, gastroenteritis, AAA, incarcerated hernia, bowel obstruction, constipation, inflammatory bowel, hepatitis, peptic ulcer disease, splenic infarction, perforated viscus, vulvitis, ovarian torsion, PID, kidney stone, placenta abruption, this is not meant to be an all-inclusive list EKG interpreted by me (3pts min.)? @ -Not obtained X-rays interpreted by me (1pt min.)? @ -Not obtained CT interpreted by me (1pt min.)? @ -Pending U/S interpreted by me (1pt. min.)? @ -Not obtained What testing was considered but not performed? (CT, X-rays, U/S, labs)? Why? @ -None What meds were considered but not given? Why? @ -None Did you discuss the management of the patient with other professionals? @ -No Did you reconcile home meds? @ -No Was smoking cessation discussed for >3mins.? @ -No Was critical care preformed (if so, how long)? @ -No Were there social determinants of health that impacted care today? How? (Homelessness, low income, unemployed, alcoholism, drug addiction, transportation, low edu. Level, literacy, decrease access to med. care, fpc, rehab)? @ -No Was there de-escalation of care discussed even if they declined? (Discuss DNR or withdrawal of care, Hospice)? @ -No What co-morbidities impacted this encounter? (DM, HTN, Smoking, COPD, CAD, Cancer, CVA, Hep., AIDS, mental health diagnosis, sleep apnea, morbid obesity)? @ -None Was patient admitted / discharged? @ -Lab work obtained and found to be nonactionable. Her pain was initially treated with morphine and Toradol, however that did not effectively manage her symptoms and she was subsequently given a dose of Dilaudid. Computed tomography scan of the abdomen and pelvis obtained. Case signed out to Dr. Ulloa, ED attending, at shift completion pending computed tomography scan results. Undiagnosed new problem with uncertain prognosis? @ -None Drug Therapy requiring intensive monitoring for toxicity (Heparin, Nitro, Insulin, Cardizem)? @ -None Were any procedures done? @ -None (Sujatha Polo) The patient was signed to me from the [facility]. The patient was signed out pending completion of the computed tomography scan. CT abdomen and pelvis with IV contrast was obtained and was interpreted by myself showing mild free fluid in the pelvis. There was a left ovarian cyst measuring 1.7 cm. Trazodone ultrasound was obtained and was interpreted by myself showing left ovary measuring 2.6 x 2 x 2.2 cm with a dominant follicle measuring 1.5 x 1.9 x 1.9 cm. Internal vascular flow was noted without any evidence of torsion. There was a small volume of free fluid noted in the posterior pelvic cul-de-sac. There was no loculation noted. The patient did receive a second dose of pain medications prior to imaging and on reevaluation, the patient was able to sleep comfortably in bed. Scans were above and the patient was stable for discharge home and told to follow-up with her OB joint for further workup and evaluation. The patient was given a prescription for Toradol and told to take this medication for pain. The patient was advised report back to the emergency department if she had worsening pain or distress. The patient was agreeable to this and all of her questions were answered. The patient was discharged home in stable condition. (Patricio Ulloa) - Lab Data Lab Results 05/05/23 05/05/23 05/05/23 Range/Units 21:19 21:19 21:19 WBC 8.7 (4.0-11.0) k/uL RBC 4.30 (3.80-5.40) m/uL Hgb 13.1 (11.4-16.0) gm/dL Hct 40.0 (34.0-46.0) % MCV 92.8 (80.0-100.0) fL MCH 30.4 (25.0-35.0) pg MCHC 32.8 (31.0-37.0) g/dL RDW 13.1 (11.5-15.5) % Plt Count 249 (150-450) k/uL MPV 8.4 Neutrophils % 72 % Lymphocytes % 19 % Monocytes % 4 % Eosinophils % 3 % Basophils % 0 % Neutrophils # 6.2 (1.3-7.7) k/uL Lymphocytes # 1.6 (1.0-4.8) k/uL Monocytes # 0.4 (0-1.0) k/uL Eosinophils # 0.3 (0-0.7) k/uL Basophils # 0.0 (0-0.2) k/uL Sodium 137 (137-145) mmol/L Potassium 3.9 (3.5-5.1) mmol/L Chloride 105 (98-107) mmol/L Carbon Dioxide 23 (22-30) mmol/L Anion Gap 9 mmol/L BUN 15 (7-17) mg/dL Creatinine 0.82 (0.52-1.04) mg/dL Est GFR (CKD-EPI)AfAm >90 (>60 ml/min/1.73 sqM) Est GFR (CKD-EPI)NonAf >90 (>60 ml/min/1.73 sqM) Glucose 86 (74-99) mg/dL Plasma Lactic Acid Thai 1.4 (0.7-2.0) mmol/L Calcium 9.2 (8.4-10.2) mg/dL Total Bilirubin 0.4 (0.2-1.3) mg/dL AST 25 (14-36) U/L ALT 16 (4-34) U/L Alkaline Phosphatase 83 (38-126) U/L Total Protein 6.9 (6.3-8.2) g/dL Albumin 3.8 (3.5-5.0) g/dL Amylase 46 (30-110) U/L Lipase 173 (23-300) U/L HCG, Qual Not Detected Disposition <Sujatha Polo - Last Filed: 05/05/23 23:19> Is patient prescribed a controlled substance at d/c from ED?: No Time of Disposition: 04:00 <Patricio Ulloa - Last Filed: 05/06/23 04:45> Clinical Impression: Ovarian cyst Disposition: HOME SELF-CARE Condition: Stable Instructions (If sedation given, give patient instructions): Ovarian Cyst (ED) Prescriptions: Ketorolac [Toradol] 10 mg PO TID #30 tab Referrals: Lance Mosley MD [Primary Care Provider] - 1-2 days
[2023-05-05 21:27] LABS: Basophils % (A) 0 %; Eosinophils # (A) 0.3 k/uL (0-0.7); Eosinophils % (A) 3 %; HGB 13.1 gm/dL (11.4-16.0); Lymphocytes # (A) 1.6 k/uL (1.0-4.8); Lymphocytes % (A) 19 %; MCH 30.4 pg (25.0-35.0); MCHC 32.8 g/dL (31.0-37.0); MCV 92.8 fL (80.0-100.0); Mean Platelet Volume 8.4; Monocytes # (A) 0.4 k/uL (0-1.0); Monocytes % (A) 4 %; Neutrophils # (A) 6.2 k/uL (1.3-7.7); Neutrophils % (A) 72 %; Platelet Count 249 k/uL (150-450); RDW 13.1 % (11.5-15.5); WBC 8.7 k/uL (4.0-11.0)
[2023-05-05 21:34] LABS: ALT 16 U/L (4-34); AST 25 U/L (14-36); African American GFR (CKD) >90 (>60 ml/min/1.73 sqM); Albumin 3.8 g/dL (3.5-5.0); Alkaline Phosphatase 83 U/L (38-126); Amylase 46 U/L (30-110); Anion Gap 9 mmol/L; Blood Urea Nitrogen 15 mg/dL (7-17); Calcium 9.2 mg/dL (8.4-10.2); Carbon Dioxide 23 mmol/L (22-30); Chloride 105 mmol/L (98-107); Glucose 86 mg/dL (74-99); Lipase 173 U/L (23-300); Non-African American GFR(CKD) >90 (>60 ml/min/1.73 sqM); Potassium 3.9 mmol/L (3.5-5.1); Sodium 137 mmol/L (137-145); Total Bilirubin 0.4 mg/dL (0.2-1.3); Total Protein 6.9 g/dL (6.3-8.2)
[2023-05-05] MEDS ORDERED: HYDROmorphone 1 MG/ML 1 ML SYRINGE IVP STA (21:48)
[2023-05-05 21:58] LABS: HCG,Qualitative Serum Not Detected
--- NOTE | 2023-05-06 00:08 | CT ---
EXAM: CT Abdomen and Pelvis With Intravenous Contrast CLINICAL HISTORY: ITS.REASON CT Reason: LUQ and LLQ abdominal pain TECHNIQUE: Axial computed tomography images of the abdomen and pelvis with intravenous contrast. CTDI is 22.4 mGy and DLP is 1053 mGy-cm. This CT exam was performed using one or more of the following dose reduction techniques: automated exposure control, adjustment of the mA and/or kV according to patient size, and/or use of iterative reconstruction technique. COMPARISON: No relevant prior studies available. FINDINGS: Lung bases: Unremarkable. No mass. No consolidation. Pleural space: Trace RIGHT pleural effusion. ABDOMEN: Liver: Unremarkable. No mass. Gallbladder and bile ducts: Unremarkable. No calcified stones. No ductal dilation. Pancreas: Unremarkable. No mass. No ductal dilation. Spleen: Unremarkable. No splenomegaly. Adrenals: Unremarkable. No mass. Kidneys and ureters: Unremarkable. No solid mass. No hydronephrosis. Stomach and bowel: Gastric sleeve. No obstruction. No mucosal thickening. PELVIS: Appendix: No findings to suggest acute appendicitis. Bladder: Unremarkable. No mass. Reproductive: Unremarkable as visualized. ABDOMEN and PELVIS: Intraperitoneal space: Mild free fluid in the pelvis. LEFT ovarian cystic lesion measures 1.7 cm. Consider pelvic ultrasound correlation. No free air. Bones/joints: No acute fracture. No dislocation. Soft tissues: Unremarkable. Vasculature: Unremarkable. No abdominal aortic aneurysm. Lymph nodes: Unremarkable. No enlarged lymph nodes. IMPRESSION: Mild free fluid in the pelvis. LEFT ovarian cystic lesion measures 1.7 cm. Consider pelvic ultrasound correlation.
[2023-05-06] MEDS ORDERED: HYDROmorphone 1 MG/ML 1 ML SYRINGE IVP STA (01:24)
--- NOTE | 2023-05-06 04:16 | US ---
EXAM: US Pelvis Transabdominal and Transvaginal, Complete CLINICAL HISTORY: ITS.REASON US Reason: Severe left abd pain, ovarian cyst, r/o torsion TECHNIQUE: Real-time complete transabdominal and transvaginal pelvic ultrasound with image documentation. Transvaginal imaging was used for better evaluation of the endometrium and adnexa. COMPARISON: CT abdomen and pelvis performed 05/05/2023 at 2201 hrs. FINDINGS: Uterus/cervix: Uterus measures 6.2 x 3.3 x 3.9 cm. The endometrial stripe measures 10 mm. No myometrial mass. Right ovary: The right ovary measures 3 x 2.1 x 1.5 cm. Internal vascular flow noted. Normal blood flow. No adnexal mass. Left ovary: The left ovary measures 2.6 x 2 x 3.2 cm with a dominant follicle measuring 1.5 x 1.9 x 1.9 cm. Internal vascular flow noted. Normal blood flow. No adnexal mass. Free fluid: Small volume free fluid noted in the posterior pelvic cul- de-sac. No loculation. Bladder: Unremarkable as visualized. Wall is normal thickness for degree of distention. IMPRESSION: 1. The left ovary measures 2.6 x 2 x 3.2 cm with a dominant follicle measuring 1.5 x 1.9 x 1.9 cm. Internal vascular flow noted without evidence for torsion. 2. Small volume free fluid noted in the posterior pelvic cul-de-sac. No loculation.
[2023-05-06] MEDS ORDERED: KETOROLAC 15 MG/ML 1 ML VIAL IVP STA (04:26)
[2023-05-06 04:45] VITALS: BP 113/73; PULSE 78; RESP 16; TEMP 98.2
== END 2023-05-06 04:45 | disposition home or self-care (01) ==
LOC: EC 20:24
DX: N83.202 Unspecified ovarian cyst, left side (principal); J45.909 Unspecified asthma, uncomplicated; G40.909 Epilepsy, unspecified, not intractable, without status epilepticus; F41.9 Anxiety disorder, unspecified; F31.9 Bipolar disorder, unspecified; F90.9 Attention-deficit hyperactivity disorder, unspecified type; Z79.899 Other long term (current) drug therapy
CPT/HCPCS: 80053; 82150; 83605; 83690; 85025; 84703; 74177; 99284; 96374; 96375 ×2; 96376 ×2; 96361; J2270; J1170; J1885; Q9967; 76830; 93975

== ENCOUNTER → 2023-05-30 | Outpatient (CLI) | payer BC ==
[2023-05-30 15:29] VITALS: BP 118/87; PULSE 114; RESP 13; TEMP 97.7; BMI 30.6
--- NOTE | 2023-05-30 15:49 | P.BASOAP ---
Subjective Progress Note Date: 05/30/23 DATE OF SERVICE: 05/30/2023 CHIEF COMPLAINT: Status post sleeve gastrectomy HISTORY OF PRESENT ILLNESS: Lani Lacy is a 22-year-old female status post sleeve gastrectomy 03/13/2022. She is 1 out. He is accompanied by her parents. Her weight loss has been stable. She had sphagehetti for dinner last night. She ate oatmeal for breakfast. She is not eating much protein. She has change in bowel habits with abdominal pain. He had gone to the emergency room due to abdominal pain. She reports pain along the groin area for possible hernia. She complains of left groin pain and left leg pain for over one month. She also reports panniculitis. At height of 5 feet 5 inches, her ideal body weight is 149 pounds. Highest weight 293 pounds, BMI 48.9. She comes in 184 pounds from 265 pounds, 1 year ago. She has lost 82 pounds in 1 year. Lifetime weight loss 109 pounds. Percent excess weight loss lifetime 76%. Her body mass index is 30.6. She is 35 pounds overweight. PAST MEDICAL HISTORY: 1. Morbid obesity due to excess calories 2. Body mass index of 47.1 3. Depressive disorder 4. Gastroesophageal reflux disease 5. Insomnia 6. Seizure disorder 7. Asthma 8. ADD/ADHD 9. Anxiety disorder 10. Bipolar disorder PAST SURGICAL HISTORY: 1. Tonsillectomy 2. Adenoidectomy 3. Status post sleeve gastrectomy HOME MEDICATIONS: Home Medications Medication Instructions Recorded Confirmed FLUoxetine HCL [PROzac] 40 mg PO QAM 01/09/18 06/29/23 Melatonin [Melatonin ER] 5 - 10 mg PO 01/09/18 06/29/23 Atomoxetine HCl [Strattera] 80 mg PO QAM 04/20/21 06/29/23 QUEtiapine FUMARATE [SEROquel] 200 mg PO HS 04/20/21 06/29/23 busPIRone HCL 5 mg PO TID 04/20/21 06/29/23 Levalbuterol Hfa Inhaler [Xopenex 1 puff INHALATION DAILY PRN 10/20/21 06/29/23 Hfa Inhaler] Lumateperone Tosylate [Caplyta] 42 mg PO 02/22/22 06/29/23 Acetaminophen Tab [Tylenol] 650 mg PO Q6H PRN 06/15/23 06/29/23 Beyaz Control Tabs 1 dose PO DAILY 06/15/23 06/29/23 Cholecalciferol (Vitamin D3) 125 mcg PO DAILY 06/15/23 06/29/23 [Vitamin D3 (125 MCG = 5,000 IU)] Hydrocortisone Cream 1 applic TOPICAL DIRECTED PRN 06/15/23 06/26/23 [Hydrocortisone 2.5% Cream] Ibuprofen [Motrin] 800 mg PO DIRECTED PRN 06/15/23 06/26/23 Ketoconazole [Ketoconazole 2%] 1 applic TOPICAL DIRECTED PRN 06/15/23 06/26/23 Multivitamins, Thera [Multivitamin 1 tab PO DAILY 06/15/23 06/29/23 (formulary)] Omeprazole [PriLOSEC] 20 mg PO AC-BRKFST 06/15/23 06/29/23 Ketorolac [Toradol] 10 mg PO TID PRN 06/26/23 06/26/23 Nystatin 100,000 Unit/gm Powd 1 applic TOPICAL BID PRN 06/26/23 06/26/23 [Mycostatin Powder] ALLERGIES: Allergies Allergy/AdvReac Type Severity Reaction Status Date / Time No Known Allergies Allergy Verified 06/26/23 13:29 FAMILY HISTORY: She is adopted. No family history of stomach or esophageal cancer. REVIEW OF ORGAN SYSTEMS: CONSTITUTIONAL: At height of 5 feet 5 inches, her ideal body weight is 149 pounds. Highest weight 282 pounds, BMI 47.1. She comes in 282 pounds [id number] po unds, 6 months ago. She has gained 7 pounds in 6 months. Her body mass index is 47.1. She is 133 pounds overweight. HEENT: Denies any active troubles with vision or hearing. ENDOCRINE: Denies diabetes. No hypothyroidism. CARDIOVASCULAR: Has hypertensive heart disease. Has persistent tachycardia. RESPIRATORY: Has daytime somnolence. Has asthma. Has chronic obstructive pulmonary disease. GASTROINTESTINAL: Denies any bright red blood per rectum. No diarrhea. No constipation. Has gastroesophageal reflux disease. GENITOURINARY: Denies bladder urgency. No recent blood in urine MUSCULOSKELETAL: Has lower back pain and joint pain. NEURO: Has seizure disorders. PSYCH: Has depression. No suicidal ideation. Has bipolar disorder. Has anxiety. Has ADD/ADHD RHEUMATOLOGIC: No lupus. No rheumatoid arthritis. HEMATOLOGIC: Denies any abnormal bleeding or bruising. SKIN: No rash. No skin cancer. PHYSICAL EXAM: VITAL SIGNS: Height 5 foot 5 inches, weight 184 pounds. BMI 30.6 Vital Signs Temp 97.7 F 05/30/23 15:06 Pulse 114 H 05/30/23 15:06 Resp 13 05/30/23 15:06 BP 118/87 05/30/23 15:06 Pulse Ox FiO2 GENERAL: Well-developed in no acute distress. HEENT: No scleral icterus. Extraocular movements grossly intact. Hears conversational speech. No nasal drainage. NECK: Supple without lymphadenopathy. CHEST: Nonlabored respirations with equal bilateral excursions. CARDIOVASCULAR: Distal 2+ pulses. Tachycardic. ABDOMEN: Nontender. Nondistended. No hernias. Panniculitis, grade 3 MUSCULOSKELETAL: No clubbing, cyanosis. NEURO: No focal or lateralizing signs. Cranial nerves 2 through 12 grossly within normal limits. PSYCH: Appropriate affect. Alert and oriented to person, place and time. SKIN: Good skin turgor. Well perfused. STUDIES: CT abdomen and pelvis and a reviewed demonstrates moderate gaseous distention of the intestine. Left physiological-appearing cyst. No bowel obstruction. This is my independent interpretation. LABS: Labs from 2022 demonstrates no anemia or leukocytosis ASSESSMENT: 1. Morbid obesity due to excess calories 2. Body mass index of 48.9, initial to 30.6 3. Depressive disorder 4. Gastroesophageal reflux disease 5. Insomnia 6. Seizure disorder 7. Asthma 8. ADD/ADHD 9. Anxiety disorder 10. Bipolar disorder 11. Persistent tachycardia 12. Hypertriglyceridemia 13. Hypercholesterolemia 14. Selenium elevated. 15. Elevated LFTs 16. Seizure 17. Status post sleeve gastrectomy 18. Left inguinal pain 19. Change in bowel habits 20. Panniculitis PLAN: 1. Recommend dietary surveillance and counseling of 75 g daily. 2. Colonoscopy advised for abdominal pain and change in bowel habits 3. Diagnostic laparoscopy prescribed due to persistent abdominal pain. 4. Recommend full bariatric labs. Objective - Vital Signs Vital signs: Vital Signs Temp 97.7 F 05/30/23 15:06 Pulse 114 H 05/30/23 15:06 Resp 13 05/30/23 15:06 BP 118/87 05/30/23 15:06 Pulse Ox FiO2 Intake & Output 05/29/23 05/30/23 05/30/23 18:59 06:59 18:59 Weight 83.416 kg Assessment/Plan Plan: Date: 05/30/23 Initial Weight: Initial BMI: Current Weight: 83.416 kg Current BMI: 30.6 Type of Surgery: Total Volume in Band: Previous Volume: Volume Removed: Volume Added: Band Size:
== END ==
LOC: BARWHC3 15:01
PROVIDERS: ATTEND Surgery Plastic and Reconstructive Surgery
DX: E66.01 Morbid (severe) obesity due to excess calories (principal); K21.9 Gastro-esophageal reflux disease without esophagitis; G47.00 Insomnia, unspecified; J45.909 Unspecified asthma, uncomplicated; F98.8 Other specified behavioral and emotional disorders with onset usually occurring in childhood and adolescence; F90.9 Attention-deficit hyperactivity disorder, unspecified type; F31.9 Bipolar disorder, unspecified; F41.9 Anxiety disorder, unspecified; E78.1 Pure hyperglyceridemia; E78.00 Pure hypercholesterolemia, unspecified; G40.909 Epilepsy, unspecified, not intractable, without status epilepticus; I47.9 Paroxysmal tachycardia, unspecified; M79.3 Panniculitis, unspecified; R19.4 Change in bowel habit; R74.8 Abnormal levels of other serum enzymes; R10.32 Left lower quadrant pain; Z71.3 Dietary counseling and surveillance; Z98.84 Bariatric surgery status; Z79.899 Other long term (current) drug therapy; Z68.30 Body mass index [BMI] 30.0-30.9, adult
CPT/HCPCS: 99211

== ENCOUNTER → 2023-06-29 | Day surgery (SDC) | payer BC ==
[2023-06-26 14:00] VITALS: BMI 27.4
[~2023-06-29] MED LIST changes: -CHLORHEXIDINE GLUCONATE 15 ML CUP MUCOUS MEM PRN; -ENOXAPARIN 40 MG/0.4 ML SYRINGE SQ PRN; -PANTOPRAZOLE 40 MG/10 ML VIAL IVP PRN; +SODIUM CHLORIDE 0.9% 1,000 ML IV SCH; -ceFAZolin 3 GM in SODIUM CHLORIDE 0.9% 100 ML IVPB PRN
[2023-06-29 10:51] VITALS: BP 133/66; PULSE 107; RESP 14; TEMP 98.4
--- NOTE | 2023-07-02 17:05 | P.EPPROC ---
- EP Procedure Note Electrophysiology Procedure Note: Diagnosis Recurrent presyncope Twelve-lead EKG shows sinus mechanism heart rate 95 beats a minute Nonspecific ST-T abnormality and normal absolute QT interval Tilt table test per protocol Baseline blood pressure 124/80 mmHg, Baseline heart rate 90 beats a minute Patient was tilted upright at an angle of 70 per protocol There was an immediate increase in heart rate to 123 beats a minute Thereafter heart rate went up to 140 beats a minute She felt lightheaded with this time Subsequently after 12 minutes there was a drop in blood pressure to 83 mmHg. Just prior to that her heart rate was 154 bpm When she was laid supine her heart rate and blood pressure normalized Impression postural tachycardia Secondary neurocardiogenic phenomena Nonspecific ST-T change on twelve-lead EKG within normal absolute QT interval
== END ==
LOC: CATHEP 10:08
PROVIDERS: ATTEND Internal Medicine Clinical Cardiac Electrophysiology
DX: R55 Syncope and collapse (principal)
CPT/HCPCS: 84703; 93660

== ENCOUNTER → 2023-08-29 | Outpatient (CLI) | payer BC ==
[2023-08-29 15:50] VITALS: BP 138/92; PULSE 102; TEMP 97.9; BMI 29.2
--- NOTE | 2023-08-29 15:50 | P.BASOAP ---
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 She is almost 2 years postop. SHe has lost 120 pounds. She has lower abdominal pain over 3 months. She is on control for ovarian cysts. She has pain along the lower abdomen and seen a neurologist. She has seen a cookie mixer helper with tilt table and for evaluation of postural tachycardia syndrome, POTS. She has left groin and leg pain. She reports her pain is exacerbated with her skin. She has pannus pain causing of her left lower quadrant abdominal pain. She denies heartburn. She is seeking a panniculectomy due to pain from her pannus radiating to her left leg pain. She saw mannequin maker for panniculectomy. She reports pain is better after lifting her skin. Reports staying in bed for 4 months not moving due to the severity of her pain. At height of 5 feet 5 inches, her ideal body weight is 149 pounds. Highest weight 293 pounds, BMI 48.9. She comes in 176 pounds from 293 pounds, 2 years ago. She has lost 117 pounds in 2 years. Her body mass index is 29.3. She is 27 pounds overweight. Lifetime weight loss 117 pounds. Lifetime percent excess weight loss 81%. PAST MEDICAL HISTORY: 1. Morbid obesity due to excess calories 2. Body mass index of 48.9 3. Depressive disorder 4. Gastroesophageal reflux disease 5. Insomnia 6. Seizure disorder 7. Asthma 8. ADD/ADHD 9. Anxiety disorder 10. Bipolar disorder PAST SURGICAL HISTORY: 1. Tonsillectomy 2. Adenoidectomy 3. Status post sleeve gastrectomy HOME MEDICATIONS: Home Medications Medication Instructions Recorded Confirmed FLUoxetine HCL [PROzac] 40 mg PO QAM 01/09/18 08/29/23 Melatonin [Melatonin ER] 5 - 10 mg PO HS 01/09/18 08/29/23 Atomoxetine HCl [Strattera] 80 mg PO QAM 04/20/21 08/29/23 QUEtiapine FUMARATE [SEROquel] 200 mg PO HS 04/20/21 08/29/23 busPIRone HCL 5 mg PO TID 04/20/21 08/29/23 Levalbuterol Hfa Inhaler [Xopenex 1 puff INHALATION DAILY PRN 10/20/21 08/29/23 Hfa Inhaler] Lumateperone Tosylate [Caplyta] 42 mg PO HS 02/22/22 08/29/23 Acetaminophen Tab [Tylenol] 650 mg PO Q6H PRN 06/15/23 08/29/23 Beyaz Control Tabs 1 dose PO DAILY 06/15/23 08/29/23 Cholecalciferol (Vitamin D3) 125 mcg PO DAILY 06/15/23 08/29/23 [Vitamin D3 (125 MCG = 5,000 IU)] Hydrocortisone Cream 1 applic TOPICAL DIRECTED PRN 06/15/23 08/29/23 [Hydrocortisone 2.5% Cream] Ibuprofen [Motrin] 800 mg PO DIRECTED PRN 06/15/23 08/29/23 Ketoconazole [Ketoconazole 2%] 1 applic TOPICAL DIRECTED PRN 06/15/23 08/29/23 Multivitamins, Thera [Multivitamin 1 tab PO DAILY 06/15/23 08/29/23 (formulary)] Omeprazole [PriLOSEC] 20 mg PO AC-BRKFST 06/15/23 08/29/23 Ketorolac [Toradol] 10 mg PO TID PRN 06/26/23 08/29/23 Nystatin 100,000 Unit/gm Powd 1 applic TOPICAL BID PRN 06/26/23 08/29/23 [Mycostatin Powder] ALLERGIES: Allergies Allergy/AdvReac Type Severity Reaction Status Date / Time No Known Allergies Allergy Verified 06/26/23 13:29 FAMILY HISTORY: She is adopted. No family history of stomach or esophageal cancer. REVIEW OF ORGAN SYSTEMS: CONSTITUTIONAL: At height of 5 feet 5 inches, her ideal body weight is 149 pounds. Highest weight 293 pounds, BMI 48.9. She comes in 293 pounds from 282 pounds, 4 months ago. She has gained 11 pounds in 4 months. Her body mass index is 48.9. She is 144 pounds overweight. HEENT: Denies any active troubles with vision or hearing. ENDOCRINE: Denies diabetes. No hypothyroidism. CARDIOVASCULAR: Has hypertensive heart disease. Has persistent tachycardia. RESPIRATORY: Has daytime somnolence. Has asthma. Has chronic obstructive pulmonary disease. GASTROINTESTINAL: Denies any bright red blood per rectum. No diarrhea. No constipation. Has gastroesophageal reflux disease. GENITOURINARY: Denies bladder urgency. No recent blood in urine MUSCULOSKELETAL: Has lower back pain and joint pain. NEURO: Has seizure disorders. PSYCH: Has depression. No suicidal ideation. Has bipolar disorder. Has anxiety. Has ADD/ADHD RHEUMATOLOGIC: No lupus. No rheumatoid arthritis. HEMATOLOGIC: Denies any abnormal bleeding or bruising. SKIN: No rash. No skin cancer. PHYSICAL EXAM: VITAL SIGNS: Height 5 foot 5 inches, weight 176 pounds. BMI 29.3 Vital Signs Temp 97.9 F 08/29/23 15:29 Pulse 102 H 08/29/23 15:29 Resp BP 138/92 08/29/23 15:29 Pulse Ox FiO2 GENERAL: Well-developed in no acute distress. HEENT: No scleral icterus. Extraocular movements grossly intact. Hears conversational speech. No nasal drainage. NECK: Supple without lymphadenopathy. CHEST: Nonlabored respirations with equal bilateral excursions. CARDIOVASCULAR: Tachycardic. Distal 2+ pulses. ABDOMEN: Obese, soft, nontender, nondistended. MUSCULOSKELETAL: No clubbing, cyanosis. NEURO: No focal or lateralizing signs. Cranial nerves 2 through 12 grossly within normal limits. PSYCH: Appropriate affect. Alert and oriented to person, place and time. SKIN: Good skin turgor. Well perfused. ASSESSMENT: 1. Morbid obesity due to excess calories 2. Body mass index of 48.9 to 29.3 3. Depressive disorder 4. Gastroesophageal reflux disease 5. Insomnia 6. Seizure disorder 7. Asthma 8. ADD/ADHD 9. Anxiety disorder 10. Bipolar disorder 11. Persistent tachycardia 12. Hypertriglyceridemia 13. Hypercholesterolemia 14. Selenium elevated. 15. Elevated LFTs 16. Seizure 17. Panniculitis 18. Left lower quadrant abdominal pain PLAN: 1. She comes in with moderate weight loss of 120 pounds and reports pain from her pannus. Recommend further assessment with neurologist. 2. May benefit from panniculectomy due to her back pain and abdominal pain. 3. Recommend correction of nutritional deficiencies 4. Follow-up after cardiac and neurology clearances. Objective - Vital Signs Vital signs: Vital Signs Temp 97.9 F 08/29/23 15:29 Pulse 102 H 08/29/23 15:29 Resp BP 138/92 08/29/23 15:29 Pulse Ox FiO2 Intake & Output 08/28/23 08/29/23 08/29/23 18:59 06:59 18:59 Weight 79.832 kg Assessment/Plan Plan: Date: 08/29/23 Initial Weight: Initial BMI: Current Weight: 79.832 kg Current BMI: 29.2 Type of Surgery: Total Volume in Band: Previous Volume: Volume Removed: Volume Added: Band Size:
== END ==
LOC: BARWHC3 14:36
PROVIDERS: ATTEND Surgery Plastic and Reconstructive Surgery
DX: K21.9 Gastro-esophageal reflux disease without esophagitis (principal); E66.01 Morbid (severe) obesity due to excess calories; G47.00 Insomnia, unspecified; G40.909 Epilepsy, unspecified, not intractable, without status epilepticus; J45.909 Unspecified asthma, uncomplicated; F98.8 Other specified behavioral and emotional disorders with onset usually occurring in childhood and adolescence; F90.9 Attention-deficit hyperactivity disorder, unspecified type; F41.9 Anxiety disorder, unspecified; F31.9 Bipolar disorder, unspecified; E78.1 Pure hyperglyceridemia; E78.00 Pure hypercholesterolemia, unspecified; R79.89 Other specified abnormal findings of blood chemistry; R00.0 Tachycardia, unspecified; R74.01 Elevation of levels of liver transaminase levels; M79.3 Panniculitis, unspecified; R10.32 Left lower quadrant pain; Z68.29 Body mass index [BMI] 29.0-29.9, adult; Z98.84 Bariatric surgery status; Z79.899 Other long term (current) drug therapy
CPT/HCPCS: 99211

== ENCOUNTER 2023-12-17 22:18 | Inpatient (IN) | payer BC ==
--- NOTE | 2023-12-17 22:28 | ED ---
Abdominal Pain HPI - General Source: patient, family, RN notes reviewed Mode of arrival: ambulatory Limitations: no limitations <Yamileth León - Last Filed: 12/18/23 04:30> <Nancy Pineda - Last Filed: 12/20/23 23:37> - General Stated Complaint: Abd Pain,Vomiting Time Seen by Provider: 12/17/23 22:27 - History of Present Illness Initial Comments: 23-year-old female presenting to the ER with a chief complaint of abdominal pain. She states this been going on for the past 3 days and also was endorsing nausea and vomiting. She does report sleeve bariatric surgery in 2021. States for the past 3 days she has been nauseous and having dry heaves. She states today she actually had an episode of emesis. Denies any hematemesis or urinary complaints. Denies any fevers, chills, diarrhea or constipation. (Yamileth León) - Related Data Home Medications Medication Instructions Recorded Confirmed Melatonin [Melatonin ER] 20 mg PO HS 01/09/18 12/18/23 Atomoxetine HCl [Strattera] 80 mg PO DAILY 04/20/21 12/18/23 busPIRone HCL 10 mg PO DAILY 04/20/21 12/18/23 Levalbuterol Hfa Inhaler [Xopenex 2 puff INHALATION RT-Q4H PRN 10/20/21 12/18/23 Hfa Inhaler] Lumateperone Tosylate [Caplyta] 42 mg PO HS 02/22/22 12/18/23 Beyaz Control Tabs 1 tab PO DAILY 06/15/23 12/18/23 Cholecalciferol (Vitamin D3) 125 mcg PO DAILY 06/15/23 12/18/23 [Vitamin D3 (125 MCG = 5,000 IU)] Ibuprofen [Motrin] 800 mg PO QID PRN 06/15/23 12/18/23 Multivitamins, Thera [Multivitamin 1 tab PO DAILY 06/15/23 12/18/23 (formulary)] Acetaminophen Tab [Tylenol Tab] 500 mg PO Q4H PRN 12/18/23 12/18/23 FLUoxetine HCL [PROzac] 40 mg PO DAILY 12/18/23 12/18/23 Gabapentin [Neurontin] 100 mg PO BID 12/18/23 12/18/23 Omeprazole [PriLOSEC] 20 mg PO DAILY 12/18/23 12/18/23 QUEtiapine [SEROquel] 100 mg PO BID 12/18/23 12/18/23 busPIRone HCl [Buspar] 5 mg PO HS 12/18/23 12/18/23 Allergies Allergy/AdvReac Type Severity Reaction Status Date / Time No Known Allergies Allergy Verified 12/20/23 16:18 Review of Systems ROS Other: All systems not noted in ROS Statement are negative. <Yamileth León - Last Filed: 12/18/23 04:30> ROS Other: All systems not noted in ROS Statement are negative. <Nancy Pineda - Last Filed: 12/20/23 23:37> ROS Statement: Those systems with pertinent positive or pertinent negative responses have been documented in the HPI. Past Medical History Past Medical History: Asthma, Seizure Disorder Additional Past Medical History / Comment(s): LAST SEIZURE JULY 2021. SEEING A NEUROLOGIST. POTS History of Any Multi-Drug Resistant Organisms: None Reported Past Surgical History: Adenoidectomy, Bariatric Surgery, Tonsillectomy Additional Past Surgical History / Comment(s): oral surgery. gastric sleeve 03/13/22 Past Anesthesia/Blood Transfusion Reactions: No Reported Reaction Additional Past Anesthesia/Blood Transfusion Reaction / Comment(s): SEVERE ANXIETY. Past Psychological History: ADD/ADHD, Anxiety, Bipolar Additional Psychological History / Comment(s): PANIC ATTACKS (PER MOTHER) Smoking Status: Never smoker Past Alcohol Use History: None Reported Past Drug Use History: None Reported - Past Family History Mother Family Medical History: Unable to Obtain <Yamileth León - Last Filed: 12/18/23 04:30> General Exam General appearance: alert, in no apparent distress Head exam: Present: atraumatic, normocephalic, normal inspection Respiratory exam: Present: normal lung sounds bilaterally. Absent: respiratory distress, wheezes, rales, rhonchi, stridor Cardiovascular Exam: Present: regular rate, normal rhythm, normal heart sounds. Absent: systolic murmur, diastolic murmur, rubs, gallop, clicks GI/Abdominal exam: Present: soft, tenderness (RUQ/LUQ), guarding (RUQ/LUQ), normal bowel sounds <Yamileth León - Last Filed: 12/18/23 04:30> - General Exam Comments Initial Comments: Visual Physical Exam Vital signs reviewed General: Well-appearing, nontoxic, no acute distress. Head: Normocephalic, atraumatic Eyes: PERRLA, EOMI ENT: Airway patent Chest: Nonlabored breathing Skin: No visual rash, normal skin tone Neuro: Alert and oriented 3 Musculoskeletal: No gross abnormalities (Yamileth León) Course Vital Signs 12/17/23 12/18/23 12/18/23 22:55 09:00 12:25 Temperature 98.7 F 98.1 F 98.3 F Pulse Rate 53 L 75 76 Respiratory 18 16 16 Rate Blood Pressure 112/83 125/86 127/88 O2 Sat by Pulse 99 99 98 Oximetry Medical Decision Making - Lab Data Result diagrams: 12/18/23 00:40 12/18/23 00:40 - Radiology Data Radiology results: report reviewed, image reviewed <Yamileth León - Last Filed: 12/18/23 04:30> - Lab Data Result diagrams: 12/19/23 09:05 12/20/23 04:20 <Nancy Pineda - Last Filed: 12/20/23 23:37> - Medical Decision Making I performed the quick note portion of this chart. Electronically signed by Yamileth León PA-C Was pt. sent in by a medical professional or institution ([facility], [facility], urgent care, hospital, or retirement...) When possible be specific @ -No Did you speak to anyone other than the patient for history (EMS, parent, family, police, friend...)? What history was obtained from this source @ -No Did you review nursing and triage notes (agree or disagree)? Why? @ -I reviewed and agree with nursing and triage notes Were old charts reviewed (outside hosp., previous admission, EMS record, old EKG, old radiological studies, urgent care reports/EKG's, retirement records)? Report findings @ -No old charts were reviewed Differential Diagnosis (chest pain, altered mental status, abdominal pain women, abdominal pain men, vaginal bleeding, weakness, fever, dyspnea, syncope, headache, dizziness, GI bleed, back pain, seizure, CVA, palpatations, mental health, musculoskeletal)? @ -Differential Abdominal Pain Women:Appendicitis, Cholecystitis, diverticulosis, ischemic bowel, pancreatitis, hepatitis, UTI, gastroenteritis, AAA, incarcerated hernia, bowel obstruction, constipation, inflammatory bowel, hepatitis, peptic ulcer disease, splenic infarction, perforated viscus, vulvitis, ovarian torsion, PID, kidney stone, placenta abruption, this is not meant to be an all-inclusive list EKG interpreted by me (3pts min.). @ -None X-rays interpreted by me (1pt min.). @ -None done CT interpreted by me (1pt min.). @ -CT abdomen pelvis with contrast significant for a prominent gallbladder measuring 4.5 cm with minimal adjacent stranding. Associated with common duct dilation measuring up to 10 mm. Intrahepatic biliary dilation. Findings favored with biliary obstruction and possible cholecystitis U/S interpreted by me (1pt. min.). @ -None done What testing was considered but not performed or refused? (CT, X-rays, U/S, labs)? Why? @ -None What meds were considered but not given or refused? Why? @ -None Did you discuss the management of the patient with other professionals (professionals i.e. , PA, [facility], lab, RT, psych nurse, social security specialist, braid folder, teacher, targeting acquisition officer, case planner)? Give summary @ -Yes, case discussed with Dr. Major, who accepts medical admission. Was smoking cessation discussed for >3mins.? @ -No Was critical care preformed (if so, how long)? @ -No Were there social determinants of health that impacted care today? How? (Homel essness, low income, unemployed, alcoholism, drug addiction, transportation, low edu. Level, literacy, decrease access to med. care, custodial, rehab)? @ -No Was there de-escalation of care discussed even if they declined (Discuss DNR or withdrawal of care, Hospice)? DNR status @ -No What co-morbidities impacted this encounter? (DM, HTN, Smoking, COPD, CAD, Cancer, CVA, ARF, Chemo, Hep., AIDS, mental health diagnosis, sleep apnea, morbid obesity)? @ -Prior bariatric surgery Was patient admitted / discharged? Hospital course, mention meds given and route, prescriptions, significant lab abnormalities, going to OR and other pertinent info. @ -Admitted. 23-year-old female presenting to the ER with chief complaint of abdominal pain with nausea and vomiting x 3 days. History and physical exam c ompleted. Vitals stable. Patient in no signs of acute distress and nontoxic- appearing. Laboratory studies obtained significant for transaminitis (total bilirubin 2.2, AST 155, ALT 191, alk phos 151). CT abdomen pelvis significant for prominent gallbladder measuring 4.5 cm in diameter with minimal adjacent stranding. Associated with common duct dilation measuring up to 10 mm. Intrahepatic biliary dilation. Findings favoring biliary obstruction and possible cholecystitis. Symptomatic control in ER. Results discussed with patient, all questions answered. Admission considered for need of GI/surgical consultation. Case discussed with Derick Beltran, who accepts medical admission. GI and surgery on consult. Patient agreeable for admission. Case discussed with ED attending, Dr. Pineda. Undiagnosed new problem with uncertain prognosis? @ -No Drug Therapy requiring intensive monitoring for toxicity (Heparin, Nitro, Insulin, Cardizem)? @ -No Were any procedures done? @ -No Diagnosis/symptom? @ -Biliary obstruction/cholecystitis/transaminitis Acute, or Chronic, or Acute on Chronic? @ -Acute Uncomplicated (without systemic symptoms) or Complicated (systemic symptoms)? @ -Complicated Side effects of treatment? @ -No Exacerbation, Progression, or Severe Exacerbation? @ -No Poses a threat to life or bodily function? How? (Chest pain, USA, PR, pneumonia, PE, COPD, DKA, ARF, appy, cholecystitis, CVA, Diverticulitis, Homicidal, Suicidal, threat to staff... and all critical care pts) @ -Yes can lead to sepsis. (Yamileth León) - Lab Data Lab Results 12/18/23 12/18/23 12/18/23 Range/Units 00:40 00:40 00:40 WBC 6.9 (3.8-10.6) k/uL RBC 4.21 (3.80-5.40) m/uL Hgb 12.8 (11.4-16.0) gm/dL Hct 39.1 (34.0-46.0) % MCV 93.0 (80.0-100.0) fL MCH 30.5 (25.0-35.0) pg MCHC 32.9 (31.0-37.0) g/dL RDW 12.3 (11.5-15.5) % Plt Count 345 (150-450) k/uL MPV 7.0 Neutrophils % 63 % Lymphocytes % 28 % Monocytes % 5 % Eosinophils % 3 % Basophils % 1 % Neutrophils # 4.3 (1.3-7.7) k/uL Lymphocytes # 1.9 (1.0-4.8) k/uL Monocytes # 0.4 (0-1.0) k/uL Eosinophils # 0.2 (0-0.7) k/uL Basophils # 0.1 (0-0.2) k/uL Sodium 137 (137-145) mmol/L Potassium 3.7 (3.5-5.1) mmol/L Chloride 105 (98-107) mmol/L Carbon Dioxide 24 (22-30) mmol/L Anion Gap 8 mmol/L BUN 14 (7-17) mg/dL Creatinine 0.77 (0.52-1.04) mg/dL Est GFR (CKD-EPI)AfAm >90 (>60 ml/min/1.73 sqM) Est GFR (CKD-EPI)NonAf >90 (>60 ml/min/1.73 sqM) Glucose 83 (74-99) mg/dL Plasma Lactic Acid Thai 0.8 (0.7-2.0) mmol/L Calcium 9.3 (8.4-10.2) mg/dL Total Bilirubin 2.2 H (0.2-1.3) mg/dL AST 155 H (14-36) U/L ALT 191 H (4-34) U/L Alkaline Phosphatase 151 H (38-126) U/L Total Protein 7.7 (6.3-8.2) g/dL Albumin 4.2 (3.5-5.0) g/dL Amylase 74 (30-110) U/L Lipase 226 (23-300) U/L Urine Color Urine Appearance (Clear) Urine pH (5.0-8.0) Ur Specific [place] (1.001-1.035) Urine Protein (Negative) Urine Glucose (UA) (Negative) Urine Ketones (Negative) Urine Blood (Negative) Urine Nitrite (Negative) Urine Bilirubin (Negative) Urine Urobilinogen (<2.0) mg/dL Ur Leukocyte Esterase (Negative) Urine WBC (0-5) /hpf Ur Squamous Epith Cells (0-4) /hpf Urine Bacteria (None) /hpf Urine Mucus (None) /hpf Urine HCG, Qual (Not Detectd) 12/18/23 12/18/23 Range/Units 04:02 04:02 WBC (3.8-10.6) k/uL RBC (3.80-5.40) m/uL Hgb (11.4-16.0) gm/dL Hct (34.0-46.0) % MCV (80.0-100.0) fL MCH (25.0-35.0) pg MCHC (31.0-37.0) g/dL RDW (11.5-15.5) % Plt Count (150-450) k/uL MPV Neutrophils % % Lymphocytes % % Monocytes % % Eosinophils % % Basophils % % Neutrophils # (1.3-7.7) k/uL Lymphocytes # (1.0-4.8) k/uL Monocytes # (0-1.0) k/uL Eosinophils # (0-0.7) k/uL Basophils # (0-0.2) k/uL Sodium (137-145) mmol/L Potassium (3.5-5.1) mmol/L Chloride (98-107) mmol/L Carbon Dioxide (22-30) mmol/L Anion Gap mmol/L BUN (7-17) mg/dL Creatinine (0.52-1.04) mg/dL Est GFR (CKD-EPI)AfAm (>60 ml/min/1.73 sqM) Est GFR (CKD-EPI)NonAf (>60 ml/min/1.73 sqM) Glucose (74-99) mg/dL Plasma Lactic Acid Thai (0.7-2.0) mmol/L Calcium (8.4-10.2) mg/dL Total Bilirubin (0.2-1.3) mg/dL AST (14-36) U/L ALT (4-34) U/L Alkaline Phosphatase (38-126) U/L Total Protein (6.3-8.2) g/dL Albumin (3.5-5.0) g/dL Amylase (30-110) U/L Lipase (23-300) U/L Urine Color Dark Yellow Urine Appearance Cloudy H (Clear) Urine pH 6.5 (5.0-8.0) Ur Specific [place] >1.050 H (1.001-1.035) Urine Protein Trace H (Negative) Urine Glucose (UA) Negative (Negative) Urine Ketones 1+ H (Negative) Urine Blood Negative (Negative) Urine Nitrite Negative (Negative) Urine Bilirubin 2+ H (Negative) Urine Urobilinogen 12.0 (<2.0) mg/dL Ur Leukocyte Esterase Negative (Negative) Urine WBC 2 (0-5) /hpf Ur Squamous Epith Cells 40 H (0-4) /hpf Urine Bacteria Occasional H (None) /hpf Urine Mucus Occasional H (None) /hpf Urine HCG, Qual Not Detected (Not Detectd) Disposition Time of Disposition: 04:27 <Yamileth León - Last Filed: 12/18/23 04:30> <Nancy Pineda - Last Filed: 12/20/23 23:37> Clinical Impression: Transaminitis, Cholecystitis, Biliary obstruction Disposition: ADMITTED IP TO THIS HOSP Condition: Good
[2023-12-18 00:51] LABS: Basophils # (A) 0.1 k/uL (0-0.2); Basophils % (A) 1 %; Eosinophils # (A) 0.2 k/uL (0-0.7); Eosinophils % (A) 3 %; HCT 39.1 % (34.0-46.0); HGB 12.8 gm/dL (11.4-16.0); Lymphocytes # (A) 1.9 k/uL (1.0-4.8); Lymphocytes % (A) 28 %; MCH 30.5 pg (25.0-35.0); MCHC 32.9 g/dL (31.0-37.0); Monocytes # (A) 0.4 k/uL (0-1.0); Monocytes % (A) 5 %; Neutrophils # (A) 4.3 k/uL (1.3-7.7); Neutrophils % (A) 63 %; Platelet Count 345 k/uL (150-450); RBC 4.21 m/uL (3.80-5.40); RDW 12.3 % (11.5-15.5); WBC 6.9 k/uL (3.8-10.6)
[2023-12-18 01:03] LABS: ALT 191 U/L (4-34); AST 155 U/L (14-36); African American GFR (CKD) >90 (>60 ml/min/1.73 sqM); Albumin 4.2 g/dL (3.5-5.0); Alkaline Phosphatase 151 U/L (38-126); Amylase 74 U/L (30-110); Anion Gap 8 mmol/L; Blood Urea Nitrogen 14 mg/dL (7-17); Calcium 9.3 mg/dL (8.4-10.2); Carbon Dioxide 24 mmol/L (22-30); Chloride 105 mmol/L (98-107); Glucose 83 mg/dL (74-99); Lipase 226 U/L (23-300); Non-African American GFR(CKD) >90 (>60 ml/min/1.73 sqM); Potassium 3.7 mmol/L (3.5-5.1); Sodium 137 mmol/L (137-145); Total Bilirubin 2.2 mg/dL (0.2-1.3); Total Protein 7.7 g/dL (6.3-8.2)
[2023-12-18] MEDS: ONDANSETRON 4 MG/2 ML VIAL IVP STA (03:50)
[2023-12-18] MEDS: KETOROLAC 15 MG/ML 1 ML VIAL IVP STA (03:51)
[2023-12-18] MEDS: SODIUM CHLORIDE 0.9% 1,000 ML IV STA ×2 (03:52→05:35)
--- NOTE | 2023-12-18 04:10 | CT ---
EXAM: CT Abdomen and Pelvis With Intravenous Contrast CLINICAL HISTORY: ITS.REASON CT Reason: abd pain TECHNIQUE: Axial computed tomography images of the abdomen and pelvis with intravenous contrast. CTDI is 12.7 mGy and DLP is 536.6 mGy-cm. This CT exam was performed using one or more of the following dose reduction techniques: automated exposure control, adjustment of the mA and/or kV according to patient size, and/or use of iterative reconstruction technique. COMPARISON: No relevant prior studies available. FINDINGS: Lung bases: Unremarkable. No mass. No consolidation. ABDOMEN: Liver: Unremarkable. No mass. Gallbladder and bile ducts: Prominent gallbladder measuring up to 4.5 cm in diameter with minimal adjacent stranding. Associated with this is common duct dilatation measuring up to 10 mm, out of proportion for the patient's stated age. Additional intrahepatic biliary dilatation. Findings are favored to be due to biliary obstruction. Given appearance of the gallbladder, cholecystitis is possible. Consider MRCP. Pancreas: Unremarkable. No mass. No ductal dilation. Spleen: Unremarkable. No splenomegaly. Adrenals: Unremarkable. No mass. Kidneys and ureters: Unremarkable. No solid mass. No hydronephrosis. Stomach and bowel: Gastric sleeve changes. No obstruction. No mucosal thickening. PELVIS: Appendix: No findings to suggest acute appendicitis. Bladder: Unremarkable. No mass. Reproductive: Unremarkable as visualized. ABDOMEN and PELVIS: Intraperitoneal space: Unremarkable. No free air. No significant fluid collection. Bones/joints: No acute fracture. No dislocation. Soft tissues: Unremarkable. Vasculature: Unremarkable. No abdominal aortic aneurysm. Lymph nodes: Unremarkable. No enlarged lymph nodes. IMPRESSION: 1. Prominent gallbladder measuring up to 4.5 cm in diameter with minimal adjacent stranding. Associated with this is common duct dilatation measuring up to 10 mm, out of proportion for the patient's stated age. Additional intrahepatic biliary dilatation. Findings are favored to be due to biliary obstruction. Given appearance of the gallbladder, cholecystitis is possible. Consider MRCP. 2. No other acute findings. 3. Incidental findings as described. <MYCVCSECTION> Communications: 12/18/23 04:29 Verify Receipt Verified receipt with [employer] Ronnie and report was relayed to Dr Pineda on 12/17 04:29 (-04:00)
[2023-12-18] MEDS ORDERED: NALOXONE 0.4 MG/ML 1 ML VIAL IV PRN (04:25)
[2023-12-18 04:41] LABS: Appearance,Urine Cloudy (Clear); Bacteria,Urine Occasional /hpf; Bilirubin,Urine 2+ (Negative); Blood,Urine Negative (Negative); Color,Urine Dark Yellow; Glucose,Urine (UA) Negative (Negative); Ketones,Urine 1+ (Negative); Leukocyte Esterase,Urine Negative (Negative); Mucus,Urine Occasional /hpf; Nitrite,Urine Negative (Negative); PH, Urine 6.5 (5.0-8.0); Protein,Urine Trace (Negative); Squamous Epithelial Cell,Urine 40 /hpf (0-4); WBC,Urine 2 /hpf (0-5)
--- NOTE | 2023-12-18 04:45 | P.HPIM ---
History of Present Illness H&P Date: 12/18/23 Patient is a 23-year-old female with a PMH of sleeve gastrectomy in 2021 (lost 130 pounds so far), and bipolar disorder who presents to the emergency room with complaints of abdominal pain with nausea and vomiting. Patient reports her symptoms started roughly 3 days ago with right upper quadrant abdominal discomfort, radiating throughout the abdomen, 8 out of 10 at maximal intensity, waxing and waning particularly after food, with no clear alleviating factors. Patient reports that the pain initially eased up after a day but recurred again 2 days ago and has since persisted. She reports a single episode of nonbloody nonbilious emesis earlier today. Has had severely diminished oral intake as a result of her abdominal pain and nausea. Denied experiencing fever, chills, chest pain, shortness of breath, diarrhea, cough. Reports that the pain at the time of interview is a 3 out of 10 in the right upper quadrant. CT abdomen pelvis in the emergency room revealed findings consistent with an inflamed gallbladder as well as common biliary duct dilatation of 10 mm with additional intrahepatic biliary ductal dilatation with MRCP recommended. Laboratory evaluation was remarkable for total bilirubin 2.2, AST 155, ALT 191, alk phos 151, with urine hCG negative, WBC count 6.9, hemoglobin 12.8. ED documentation reviewed and case discussed with ED provider. Review of systems: Pertinent positives and negatives as discussed in HPI, a complete review of systems was performed and all other systems are negative. Physical examination: Vital signs reviewed General: non toxic, no distress, appears at stated age, overweight Derm: no unusual rashes/lesions, warm Head: atraumatic, normocephalic, symmetric Eyes: EOMI, no lid lag, anicteric sclera, pupils equal round reactive to light ENT: Nose and ears atraumatic Neck: No cervical lymphadenopathy, trachea midline, supple Mouth: no lip lesion, mucus membranes moist Cardiovascular: S1S2 reg, no murmur, positive dorsalis pedis pulse bilateral, no edema Lungs: CTA bilateral, no rhonchi, no rales, no accessory muscle use Abdominal: soft, mild right upper quadrant tenderness to palpation, no guarding Ext: muscle strength 5 out of 5 in all 4 extremities grossly, no gross muscle atrophy, no contractures, Neuro: CN II-XI grossly intact, no gross focal neuro deficits Psych: Alert, oriented, appropriate affect Assessment: Right upper quadrant abdominal discomfort with emesis, suspect choledocholithiasis Abnormal LFTs, likely due to above Chronic conditions: Status post sleeve gastrectomy, bipolar disorder Imaging: CT abdomen pelvis in the emergency room revealed findings consistent with an inflamed gallbladder as well as common biliary duct dilatation of 10 mm with additional intrahepatic biliary ductal dilatation with MRCP recommended. Data Review: Laboratory evaluation was remarkable for total bilirubin 2.2, AST 155, ALT 191, alk phos 151, with urine hCG negative, WBC count 6.9, hemoglobin 12.8. Plan: GI consulted for possible ERCP Continue with antiemetics Zofran 4 mg IV every 8 hours as needed Continue with normal saline 130 cc/h Pain control with Toradol N.p.o. for now DVT prophylaxis: Lovenox subcu The patient is admitted with an anticipated greater than 2 midnight stay for evaluation of choledocholithiasis CODE STATUS: Full Code Discussed with: Patient Anticipated discharge place: Home Past Medical History Past Medical History: Asthma, Seizure Disorder Additional Past Medical History / Comment(s): LAST SEIZURE JULY 2021. SEEING A NEUROLOGIST. POTS History of Any Multi-Drug Resistant Organisms: None Reported Past Surgical History: Adenoidectomy, Bariatric Surgery, Tonsillectomy Additional Past Surgical History / Comment(s): oral surgery. gastric sleeve 03/13/22 Past Anesthesia/Blood Transfusion Reactions: No Reported Reaction Additional Past Anesthesia/Blood Transfusion Reaction / Comment(s): SEVERE ANXIETY. Past Psychological History: ADD/ADHD, Anxiety, Bipolar Additional Psychological History / Comment(s): PANIC ATTACKS (PER MOTHER) Smoking Status: Never smoker Past Alcohol Use History: None Reported Past Drug Use History: None Reported - Past Family History Mother Family Medical History: Hypertension Medications and Allergies Home Medications Medication Instructions Recorded Confirmed Type FLUoxetine HCL [PROzac] 40 mg PO QAM 01/09/18 08/29/23 History Melatonin [Melatonin ER] 5 - 10 mg PO HS 01/09/18 08/29/23 History Atomoxetine HCl [Strattera] 80 mg PO QAM 04/20/21 08/29/23 History QUEtiapine FUMARATE [SEROquel] 200 mg PO HS 04/20/21 08/29/23 History busPIRone HCL 5 mg PO TID 04/20/21 08/29/23 History Levalbuterol Hfa Inhaler [Xopenex 1 puff INHALATION DAILY PRN 10/20/21 08/29/23 History Hfa Inhaler] Lumateperone Tosylate [Caplyta] 42 mg PO HS 02/22/22 08/29/23 History Acetaminophen Tab [Tylenol] 650 mg PO Q6H PRN 06/15/23 08/29/23 History Beyaz Control Tabs 1 dose PO DAILY 06/15/23 08/29/23 History Cholecalciferol (Vitamin D3) 125 mcg PO DAILY 06/15/23 08/29/23 History [Vitamin D3 (125 MCG = 5,000 IU)] Hydrocortisone Cream 1 applic TOPICAL DIRECTED PRN 06/15/23 08/29/23 History [Hydrocortisone 2.5% Cream] Ibuprofen [Motrin] 800 mg PO DIRECTED PRN 06/15/23 08/29/23 History Ketoconazole [Ketoconazole 2%] 1 applic TOPICAL DIRECTED PRN 06/15/23 08/29/23 History Multivitamins, Thera [Multivitamin 1 tab PO DAILY 06/15/23 08/29/23 History (formulary)] Omeprazole [PriLOSEC] 20 mg PO AC-BRKFST 06/15/23 08/29/23 History Ketorolac [Toradol] 10 mg PO TID PRN 06/26/23 08/29/23 History Nystatin 100,000 Unit/gm Powd 1 applic TOPICAL BID PRN 06/26/23 08/29/23 History [Mycostatin Powder] Allergies Allergy/AdvReac Type Severity Reaction Status Date / Time No Known Allergies Allergy Verified 12/17/23 22:58 Physical Exam Vitals: Vital Signs Temp Pulse Resp BP Pulse Ox 12/17/23 22:55 98.7 F 53 L 18 112/83 99 Intake and Output 12/17/23 12/17/23 12/18/23 14:59 22:59 06:59 Other: Voiding Method Toilet Weight 72.575 kg Results CBC & Chem 7: 12/18/23 00:40 12/18/23 00:40 Labs: Abnormal Lab Results - Last 24 Hours (Table) 12/18/23 Range/Units 00:40 Total Bilirubin 2.2 H (0.2-1.3) mg/dL AST 155 H (14-36) U/L ALT 191 H (4-34) U/L Alkaline Phosphatase 151 H (38-126) U/L
[2023-12-18 05:17] LABS: Specific Gravity,Urine >1.050 (1.001-1.035)
[2023-12-18] MEDS: KETOROLAC 15 MG/ML 1 ML VIAL IVP PRN (05:34)
[2023-12-18] MEDS: ONDANSETRON 4 MG/2 ML VIAL IVP PRN (05:35)
[2023-12-18] MEDS: HYDROmorphone 1 MG/ML 1 ML SYRINGE IVP PRN (06:09)
[2023-12-18] MEDS: SODIUM CHLORIDE 0.9% 1,000 ML IV SCH (06:29)
[2023-12-18] MEDS ORDERED: ENOXAPARIN 40 MG/0.4 ML SYRINGE SQ SCH (09:00)
[2023-12-18 10:05] LABS: HCT 34.1 % (34.0-46.0); HGB 11.3 gm/dL (11.4-16.0); MCH 30.9 pg (25.0-35.0); MCV 93.4 fL (80.0-100.0); Mean Platelet Volume 7.1; Platelet Count 265 k/uL (150-450); RBC 3.65 m/uL (3.80-5.40); RDW 12.3 % (11.5-15.5); WBC 5.7 k/uL (3.8-10.6)
[2023-12-18 10:19] LABS: INR 0.9 (<1.2); Prothrombin Time 10.2 sec (10.0-12.5)
[2023-12-18 10:34] LABS: ALT 176 U/L (4-34); AST 125 U/L (14-36); African American GFR (CKD) >90 (>60 ml/min/1.73 sqM); Albumin 3.4 g/dL (3.5-5.0); Alkaline Phosphatase 121 U/L (38-126); Anion Gap 6 mmol/L; Blood Urea Nitrogen 12 mg/dL (7-17); Calcium 8.7 mg/dL (8.4-10.2); Carbon Dioxide 23 mmol/L (22-30); Chloride 107 mmol/L (98-107); Glucose 69 mg/dL (74-99); Non-African American GFR(CKD) >90 (>60 ml/min/1.73 sqM); Potassium 3.8 mmol/L (3.5-5.1); Sodium 136 mmol/L (137-145); Total Bilirubin 1.9 mg/dL (0.2-1.3); Total Protein 6.3 g/dL (6.3-8.2)
--- NOTE | 2023-12-18 10:55 | P.CONS ---
History of Present Illness - Reason for Consult Consult date: 12/18/23 Cholecystitis/biliary obstruction/transaminitis Requesting physician: Yamileth León - Chief Complaint Abdominal pain, nausea and vomiting - History of Present Illness This is a pleasant 23-year-old female who presented to the emergency department with complaints of abdominal pain and nausea and vomiting. She has a past medical history of bariatric surgery and underwent sleeve gastrectomy in February [address] Simmons, asthma and seizure disorder. States she started having abdominal pain on Sunday accompanied by nausea but no vomiting until yesterday. Patient states pain is in the upper abdomen and into the right upper quadrant. On admission she was noted to have elevated LFTs. She had a CT of the abdomen pelvis that reported prominent gallbladder with CBD dilation. Gastroenterology was consulted for elevated LFTs and biliary dilation. She currently states abdominal pain is present still in the right upper quadrant, associated with nausea and vomiting. Admitting labs WBC 6.9 hemoglobin 12.8 platelet count 345,000 sodium 137 potassium 3.7 BUN 14 creatinine 0.7 total bilirubin 2.2 AST 155 ALT 191 alkaline phosphatase 151 lipase 226. Today's repeat labs WBC 5.7 hemoglobin 11.3 platelet count 265,000 INR 0.9 sodium 136 potassium 3.8 total bilirubin 1.9 AST 125 ALT 176 alkaline phosphatase 121 Review of Systems REVIEW OF SYSTEMS: CARDIOPULMONARY: No chest pain or shortness of breath. Gastrointestinal: Right upper quadrant pain associated with nausea and vomiting. No hematemesis, coffee-ground emesis. No rectal bleeding, or melena. GENITOURINARY: No dysuria or hematuria. Dark urine. MUSCULOSKELETAL: Reports normal range of motion. SKIN: No rashes. No jaundice. ENDOCRINE: No chills, fevers. No excessive weight gain or loss. No polydipsia or polyuria. PSYCHIATRIC: Unremarkable. NEUROLOGY: No change in mental status. Denies dizziness, headache. ENT: Vision unremarkable. CONSTITUTIONAL: No recent weight loss. No fever, chills, night sweats. Past Medical History Past Medical History: Asthma, Seizure Disorder Additional Past Medical History / Comment(s): LAST SEIZURE JULY 2021. SEEING A NEUROLOGIST. POTS History of Any Multi-Drug Resistant Organisms: None Reported Past Surgical History: Adenoidectomy, Bariatric Surgery, Tonsillectomy Additional Past Surgical History / Comment(s): oral surgery. gastric sleeve 03/13/22 Past Anesthesia/Blood Transfusion Reactions: No Reported Reaction Additional Past Anesthesia/Blood Transfusion Reaction / Comm: SEVERE ANXIETY. Past Psychological History: ADD/ADHD, Anxiety, Bipolar Additional Psychological History / Comment(s): PANIC ATTACKS (PER MOTHER) Smoking Status: Never smoker Past Alcohol Use History: None Reported Past Drug Use History: None Reported - Past Family History Mother Family Medical History: Hypertension Medications and Allergies Home Medications Medication Instructions Recorded Confirmed Type Melatonin [Melatonin ER] 20 mg PO HS 01/09/18 12/18/23 History Atomoxetine HCl [Strattera] 80 mg PO DAILY 04/20/21 12/18/23 History busPIRone HCL 10 mg PO DAILY 04/20/21 12/18/23 History Levalbuterol Hfa Inhaler [Xopenex 2 puff INHALATION RT-Q4H PRN 10/20/21 12/18/23 History Hfa Inhaler] Lumateperone Tosylate [Caplyta] 42 mg PO HS 02/22/22 12/18/23 History Beyaz Control Tabs 1 tab PO DAILY 06/15/23 12/18/23 History Cholecalciferol (Vitamin D3) 125 mcg PO DAILY 06/15/23 12/18/23 History [Vitamin D3 (125 MCG = 5,000 IU)] Ibuprofen [Motrin] 800 mg PO QID PRN 06/15/23 12/18/23 History Multivitamins, Thera [Multivitamin 1 tab PO DAILY 06/15/23 12/18/23 History (formulary)] Acetaminophen Tab [Tylenol Tab] 500 mg PO Q4H PRN 12/18/23 12/18/23 History FLUoxetine HCL [PROzac] 40 mg PO DAILY 12/18/23 12/18/23 History Gabapentin [Neurontin] 100 mg PO BID 12/18/23 12/18/23 History Omeprazole [PriLOSEC] 20 mg PO DAILY 12/18/23 12/18/23 History QUEtiapine [SEROquel] 100 mg PO BID 12/18/23 12/18/23 History busPIRone HCl [Buspar] 5 mg PO HS 12/18/23 12/18/23 History Allergies Allergy/AdvReac Type Severity Reaction Status Date / Time No Known Allergies Allergy Verified 12/18/23 08:51 Physical Exam Vitals: Vital Signs Temp Pulse Resp BP Pulse Ox 12/17/23 22:55 98.7 F 53 L 18 112/83 99 Intake and Output 12/17/23 12/18/23 12/18/23 22:59 06:59 14:59 Other: Voiding Method Toilet Weight 72.575 kg General appearance: The patient is alert, oriented, appears in no acute distress. HET: Head is normocephalic and atraumatic. Conjunctiva pink. Sclera anicteric. Neck: Supple without lymphadenopathy. Trachea midline. Heart: Regular. Lungs: Equal expansion, normal respiratory effort. Abdomen: Soft, right upper quadrant and epigastric tenderness with palpation, nondistended. Skin: No rashes. Mild jaundice. Extremities: Normal skin color and turgor. No pedal edema. Neurological: No focal deficits. Alert and oriented x3. Results CBC & Chem 7: 12/18/23 09:10 12/18/23 09:10 Labs: Abnormal Lab Results - Last 24 Hours (Table) 12/18/23 12/18/23 Range/Units 00:40 04:02 Total Bilirubin 2.2 H (0.2-1.3) mg/dL AST 155 H (14-36) U/L ALT 191 H (4-34) U/L Alkaline Phosphatase 151 H (38-126) U/L Urine Appearance Cloudy H (Clear) Ur Specific [place] >1.050 H (1.001-1.035) Urine Protein Trace H (Negative) Urine Ketones 1+ H (Negative) Urine Bilirubin 2+ H (Negative) Ur Squamous Epith Cells 40 H (0-4) /hpf Urine Bacteria Occasional H (None) /hpf Urine Mucus Occasional H (None) /hpf Comments: CT abdomen pelvis with contrast reports prominent gallbladder measuring up to 4.5 cm in diameter with minimal adjacent stranding. Associated with this is common duct dilation measuring up to 10 mm, out of proportion for the patient's stated age. Additional intrahepatic biliary dilation. Findings are favored to be due to biliary obstruction. Given appearance of gallbladder, cholecystitis is possible. Consider MRCP. No other acute findings. Incidental findings as described. Assessment and Plan (1) Dilation of biliary tract Narrative/Plan: 3-year-old female presenting with right upper quadrant abdominal pain and epigastric pain associated with nausea vomiting and elevated LFTs. CT abdomen pelvis shows prominent gallbladder possible cholecystitis with common bile duct dilation up to 1.0 cm. Patient's labs are presenting in a cholestatic pattern and need to consider possible biliary obstruction. Will plan to proceed with ERCP. Procedure discussed with patient and her mother who is at the bedside including risks and benefits. Patient is agreeable to proceed. General surgery following for cholecystitis. Current Visit: Yes Status: Acute Code(s): K83.8 - OTHER SPECIFIED DISEASES OF BILIARY TRACT SNOMED Code(s): 657444396 (2) Transaminitis Current Visit: Yes Status: Acute Code(s): R74.01 - ELEVATION OF LEVELS OF LIVER TRANSAMINASE LEVELS SNOMED Code(s): 671035260 (3) Cholecystitis Current Visit: Yes Status: Acute Code(s): K81.9 - CHOLECYSTITIS, UNSPECIFIED SNOMED Code(s): 00186509 Plan: 1. Continue symptomatic and supportive care 2. Continue with pain management 3. Continue IV hydration 4. Keep n.p.o. 5. Antiemetics as needed 6. Repeat CBC, CMP, INR ordered 7. Levaquin and Indocin ordered prior to procedure 8. Patient scheduled for ERCP today. Risks and benefits discussed with patient and her mother at the bedside. Patient is willing to proceed. 9. General surgery on consultation, appreciate their recommendations Thank you for this consultation, we will continue to follow. Dr. Cameron Torrez I agree with the dictator's note, documented as a scribe by Lilia Espinal.
--- NOTE | 2023-12-18 11:01 | P.GSHP ---
History of Present Illness H&P Date: 12/18/23 Well-known to me due to prior sleeve gastrectomy including workup for the past 2 years. Patient's mother at bedside. She was post have an appointment with me tomorrow. Incidentally, patient presented with acute onset epigastric right upper quadrant abdominal pain. CT scan reviewed with features consistent with bili obstruction. Recommend GI consultation for possible ERCP. Cholecystectomy advised after ERCP is completed. Inpatient hospitalization anticipated at least 3 to 4 days reviewed with patient and family. All questions were addressed. Past Medical History Past Medical History: Asthma, Seizure Disorder Additional Past Medical History / Comment(s): LAST SEIZURE JULY 2021. SEEING A NEUROLOGIST. POTS History of Any Multi-Drug Resistant Organisms: None Reported Past Surgical History: Adenoidectomy, Bariatric Surgery, Tonsillectomy Additional Past Surgical History / Comment(s): oral surgery. gastric sleeve 03/13/22 Past Anesthesia/Blood Transfusion Reactions: No Reported Reaction Additional Past Anesthesia/Blood Transfusion Reaction / Comment(s): SEVERE ANXIETY. Past Psychological History: ADD/ADHD, Anxiety, Bipolar Additional Psychological History / Comment(s): PANIC ATTACKS (PER MOTHER) Smoking Status: Never smoker Past Alcohol Use History: None Reported Past Drug Use History: None Reported - Past Family History Mother Family Medical History: Hypertension Medications and Allergies Home Medications Medication Instructions Recorded Confirmed Type Melatonin [Melatonin ER] 20 mg PO HS 01/09/18 12/18/23 History Atomoxetine HCl [Strattera] 80 mg PO DAILY 04/20/21 12/18/23 History busPIRone HCL 10 mg PO DAILY 04/20/21 12/18/23 History Levalbuterol Hfa Inhaler [Xopenex 2 puff INHALATION RT-Q4H PRN 10/20/21 12/18/23 History Hfa Inhaler] Lumateperone Tosylate [Caplyta] 42 mg PO HS 02/22/22 12/18/23 History Beyaz Control Tabs 1 tab PO DAILY 06/15/23 12/18/23 History Cholecalciferol (Vitamin D3) 125 mcg PO DAILY 06/15/23 12/18/23 History [Vitamin D3 (125 MCG = 5,000 IU)] Ibuprofen [Motrin] 800 mg PO QID PRN 06/15/23 12/18/23 History Multivitamins, Thera [Multivitamin 1 tab PO DAILY 06/15/23 12/18/23 History (formulary)] Acetaminophen Tab [Tylenol Tab] 500 mg PO Q4H PRN 12/18/23 12/18/23 History FLUoxetine HCL [PROzac] 40 mg PO DAILY 12/18/23 12/18/23 History Gabapentin [Neurontin] 100 mg PO BID 12/18/23 12/18/23 History Omeprazole [PriLOSEC] 20 mg PO DAILY 12/18/23 12/18/23 History QUEtiapine [SEROquel] 100 mg PO BID 12/18/23 12/18/23 History busPIRone HCl [Buspar] 5 mg PO HS 12/18/23 12/18/23 History Allergies Allergy/AdvReac Type Severity Reaction Status Date / Time No Known Allergies Allergy Verified 12/18/23 08:51 Surgical - Exam Vital Signs Temp Pulse Resp BP Pulse Ox 98.7 F 53 L 18 112/83 99 12/17/23 22:55 12/17/23 22:55 12/17/23 22:55 12/17/23 22:55 12/17/23 22:55 Results - Labs 12/18/23 09:10 12/18/23 09:10 Abnormal Lab Results - Last 24 Hours (Table) 12/18/23 12/18/23 12/18/23 Range/Units 00:40 04:02 09:10 RBC 3.65 L (3.80-5.40) m/uL Hgb 11.3 L (11.4-16.0) gm/dL Sodium (137-145) mmol/L Glucose (74-99) mg/dL Total Bilirubin 2.2 H (0.2-1.3) mg/dL AST 155 H (14-36) U/L ALT 191 H (4-34) U/L Alkaline Phosphatase 151 H (38-126) U/L Albumin (3.5-5.0) g/dL Urine Appearance Cloudy H (Clear) Ur Specific [place] >1.050 H (1.001-1.035) Urine Protein Trace H (Negative) Urine Ketones 1+ H (Negative) Urine Bilirubin 2+ H (Negative) Ur Squamous Epith Cells 40 H (0-4) /hpf Urine Bacteria Occasional H (None) /hpf Urine Mucus Occasional H (None) /hpf 12/18/23 Range/Units 09:10 RBC (3.80-5.40) m/uL Hgb (11.4-16.0) gm/dL Sodium 136 L (137-145) mmol/L Glucose 69 L (74-99) mg/dL Total Bilirubin 1.9 H (0.2-1.3) mg/dL AST 125 H (14-36) U/L ALT 176 H (4-34) U/L Alkaline Phosphatase (38-126) U/L Albumin 3.4 L (3.5-5.0) g/dL Urine Appearance (Clear) Ur Specific [place] (1.001-1.035) Urine Protein (Negative) Urine Ketones (Negative) Urine Bilirubin (Negative) Ur Squamous Epith Cells (0-4) /hpf Urine Bacteria (None) /hpf Urine Mucus (None) /hpf Diabetes panel 12/18/23 12/18/23 Range/Units 00:40 09:10 Sodium 137 136 L (137-145) mmol/L Potassium 3.7 3.8 (3.5-5.1) mmol/L Chloride 105 107 (98-107) mmol/L Carbon Dioxide 24 23 (22-30) mmol/L BUN 14 12 (7-17) mg/dL Creatinine 0.77 0.77 (0.52-1.04) mg/dL Glucose 83 69 L (74-99) mg/dL Calcium 9.3 8.7 (8.4-10.2) mg/dL AST 155 H 125 H (14-36) U/L ALT 191 H 176 H (4-34) U/L Alkaline Phosphatase 151 H 121 (38-126) U/L Total Protein 7.7 6.3 (6.3-8.2) g/dL Albumin 4.2 3.4 L (3.5-5.0) g/dL Calcium panel 12/18/23 12/18/23 Range/Units 00:40 09:10 Calcium 9.3 8.7 (8.4-10.2) mg/dL Albumin 4.2 3.4 L (3.5-5.0) g/dL Pituitary panel 12/18/23 12/18/23 Range/Units 00:40 09:10 Sodium 137 136 L (137-145) mmol/L Potassium 3.7 3.8 (3.5-5.1) mmol/L Chloride 105 107 (98-107) mmol/L Carbon Dioxide 24 23 (22-30) mmol/L BUN 14 12 (7-17) mg/dL Creatinine 0.77 0.77 (0.52-1.04) mg/dL Glucose 83 69 L (74-99) mg/dL Calcium 9.3 8.7 (8.4-10.2) mg/dL Adrenal panel 12/18/23 12/18/23 Range/Units 00:40 09:10 Sodium 137 136 L (137-145) mmol/L Potassium 3.7 3.8 (3.5-5.1) mmol/L Chloride 105 107 (98-107) mmol/L Carbon Dioxide 24 23 (22-30) mmol/L BUN 14 12 (7-17) mg/dL Creatinine 0.77 0.77 (0.52-1.04) mg/dL Glucose 83 69 L (74-99) mg/dL Calcium 9.3 8.7 (8.4-10.2) mg/dL Total Bilirubin 2.2 H 1.9 H (0.2-1.3) mg/dL AST 155 H 125 H (14-36) U/L ALT 191 H 176 H (4-34) U/L Alkaline Phosphatase 151 H 121 (38-126) U/L Total Protein 7.7 6.3 (6.3-8.2) g/dL Albumin 4.2 3.4 L (3.5-5.0) g/dL
[2023-12-18] MEDS: INDOMETHACIN 100 MG SUPPOSITORY RECTAL ONE (12:03)
[2023-12-18] MEDS: LEVOFLOXACIN 500MG-D5W PMX 500 MG in DEXTROSE/WATER 1 100ML.BAG IVPB SCH (12:16)
[2023-12-18] MEDS: IOPAMIDOL-300 50ML BTL MISCELLANE ONE ×2 (12:46→13:11)
[2023-12-18] MEDS ORDERED: KETAMINE HCL IN 0.9 % NACL 50 MG/5 ML SYRINGE ONE (12:49)
[2023-12-18] MEDS ORDERED: fentaNYL (PF) 50 MCG/ML 2 ML AMP ONE (12:49)
[2023-12-18] MEDS ORDERED: LIDOCAINE 1% INJ 10MG/ML (20 ML MDV) ONE (12:49)
[2023-12-18] MEDS ORDERED: GLYCOPYRROLATE 0.2 MG/ML 2 ML VIAL ONE (12:49)
[2023-12-18] MEDS: IV FLUID CONTINUATION 1,000 ML IV ONE ×2 (12:49→13:12)
[2023-12-18] MEDS ORDERED: MIDAZOLAM 2 MG/2 ML VIAL ONE (12:49)
[2023-12-18] MEDS ORDERED: PROPOFOL 10 MG/ML 20 ML VIAL IV ONE (12:49)
--- NOTE | 2023-12-18 13:13 | P.PCN ---
Date of Procedure: 12/18/23 Procedure(s) Performed: Brief history: Patient is a 23 year-old pleasant lady scheduled for an ERCP as part of evaluation of epigastric/right upper quadrant abdominal pain and elevated serum transaminases for the last 2 days' duration. Bilirubin was 2.2 and dropped to 1.9 today. She has elevated LFTs in the range of 200s. CT of the abdomen that showed dilated CBD and distended gallbladder. Procedure performed: ERCP Preoperative diagnoses: Epigastric and right upper quadrant abdominal pain and elevated LFTs IV sedation per anesthesia: Procedure: After informed consent was obtained from the patient and after the risks benefits and complications including bleeding perforation and pancreatitis ex plained in detail the patient was brought into the endoscopy unit. The patient was placed in prone position and IV conscious sedation was administered by anesthesia under continuous monitoring. The Olympus side-viewing duodenoscope was then inserted into the mouth and esophagus intubated without any difficulty. The scope was gradually advanced into the stomach and duodenum. The major papilla was identified without any difficulty. Initial cannulation resulted in the presentation of the pancreatic duct therapy normal. Subsequently the common bile duct was cannulated and upon injection of the dye the common bile duct was dilated measuring 9 to 10 mm in diameter but no filling defects were noted. There was no intrahepatic biliary ductal dilation seen. At this time the procedure was terminated and the patient tolerated the procedure well. Impression: Normal appearing pancreatic duct Dilated common bile duct measuring 9 to 10 mm in diameter with no filling defects or intrahepatic biliary dilation seen Recommendations: The findings of this examination were discussed with the patient as well as a family. She decided not to liquid diet. Monitor LFTs closely.
--- NOTE | 2023-12-18 13:31 | FL ---
EXAMINATION TYPE: FL ERCP Intraoperative/procedural fluoroscopic services were provided. Total fluoro scopy time is 12 seconds with a total of 3 submitted images to PACS. Please see the operative/procedu ral note for further details. DAP: [id number] mGym2
[2023-12-18] MEDS: GABAPENTIN 100 MG CAP PO SCH (20:27)
[2023-12-18] MEDS: MELATONIN 5 MG TABLET PO PRN (20:27)
[2023-12-18] MEDS: LORazepam 2 MG/ML INJ IV STA ×2 (21:07→22:52)
[2023-12-18] MEDS: diphenhydrAMINE 50 MG/ML 1 ML VIAL IM STA (21:07)
[2023-12-18] MEDS: ALBUTEROL NEBULIZED 2.5 MG/3 ML INHALATION PRN (21:17)
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
[2023-12-18] MEDS: Lumateperone Tosylate [Caplyta] 42 MG Capsule PO SCH (23:39)
[2023-12-18] MEDS: QUEtiapine 100 MG TAB PO SCH (23:39)
[2023-12-18] MEDS: busPIRone HCl 5 MG TAB PO SCH (23:39)
[2023-12-18] MEDS: HALOPERIDOL LACTATE 5 MG/ML 1 ML VIAL IM PRN (23:45)
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
[2023-12-19] MEDS: Atomoxetine Hcl [Strattera] 80 MG Capsule PO SCH (08:29)
[2023-12-19] MEDS: FLUoxetine HCL 20 MG CAP PO SCH (08:59)
[2023-12-19] MEDS: busPIRone HCl 10 MG TAB PO SCH (08:59)
[2023-12-19] MEDS: PANTOPRAZOLE 40 MG TABLET PO SCH (08:59)
[2023-12-19 09:39] LABS: Basophils % (A) 0 %; Eosinophils # (A) 0.2 k/uL (0-0.7); Eosinophils % (A) 3 %; HCT 32.7 % (34.0-46.0); Lymphocytes # (A) 1.9 k/uL (1.0-4.8); Lymphocytes % (A) 29 %; MCH 31.2 pg (25.0-35.0); MCHC 33.7 g/dL (31.0-37.0); MCV 92.6 fL (80.0-100.0); Mean Platelet Volume 7.4; Monocytes # (A) 0.4 k/uL (0-1.0); Monocytes % (A) 6 %; Neutrophils # (A) 4.1 k/uL (1.3-7.7); Neutrophils % (A) 61 %; Platelet Count 248 k/uL (150-450); RBC 3.53 m/uL (3.80-5.40); RDW 12.4 % (11.5-15.5); WBC 6.6 k/uL (3.8-10.6)
[2023-12-19 09:57] LABS: ALT 179 U/L (4-34); AST 136 U/L (14-36); African American GFR (CKD) >90 (>60 ml/min/1.73 sqM); Alkaline Phosphatase 92 U/L (38-126); Anion Gap 8 mmol/L; Blood Urea Nitrogen 7 mg/dL (7-17); Calcium 8.9 mg/dL (8.4-10.2); Carbon Dioxide 21 mmol/L (22-30); Chloride 109 mmol/L (98-107); Glucose 65 mg/dL (74-99); Non-African American GFR(CKD) >90 (>60 ml/min/1.73 sqM); Potassium 3.5 mmol/L (3.5-5.1); Sodium 138 mmol/L (137-145); Total Bilirubin 1.2 mg/dL (0.2-1.3); Total Protein 5.8 g/dL (6.3-8.2)
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
--- NOTE | 2023-12-19 15:50 | P.PN ---
Subjective Progress Note Date: 12/19/23 Principal diagnosis: Abdominal pain, transaminitis This is a pleasant 23-year-old female who presented to the emergency department with complaints of abdominal pain and nausea and vomiting. She has a past medical history of bariatric surgery and underwent sleeve gastrectomy in February [address] Simmons, asthma and seizure disorder. States she started having abdominal pain on Sunday accompanied by nausea but no vomiting until yesterday. Patient states pain is in the upper abdomen and into the right upper quadrant. On admission she was noted to have elevated LFTs. She had a CT of the abdomen pelvis that reported prominent gallbladder with CBD dilation. Gastroenterology was consulted for elevated LFTs and biliary dilation. She currently states abdominal pain is present still in the right upper quadrant, associated with nausea and vomiting. Admitting labs WBC 6.9 hemoglobin 12.8 platelet count 345,000 sodium 137 potassium 3.7 BUN 14 creatinine 0.7 total b ilirubin 2.2 AST 155 ALT 191 alkaline phosphatase 151 lipase 226. Today's repeat labs WBC 5.7 hemoglobin 11.3 platelet count 265,000 INR 0.9 sodium 136 potassium 3.8 total bilirubin 1.9 AST 125 ALT 176 alkaline phosphatase 121 12/19/2023 Patient seen and examined today as a follow-up. Apparently patient had an aggressive behavior yesterday evening and had to be in 4-point restraints. Currently has sitter at bedside. Yesterday she underwent ERCP with findings of normal-appearing pancreatic duct dilated common bile duct measuring 9 to 10 mm in diameter with no filling defects or intrahepatic biliary dilation seen. Patient states she has no abdominal pain today. She has had no nausea or vom iting. Liver enzymes are trending down. Total bilirubin 1.2 AST 136 ALT 179. Patient is scheduled for cholecystectomy tomorrow. Objective - Vital Signs Vital signs: Vital Signs Temp 98.7 F 12/19/23 07:11 Pulse 104 H 12/19/23 07:11 Resp 20 12/19/23 07:11 BP 122/79 12/19/23 07:11 Pulse Ox 98 12/19/23 07:11 FiO2 Intake & Output 12/18/23 12/19/23 12/19/23 18:59 06:59 18:59 Intake Total 780 Balance 780 Weight 72.575 kg Intake: IV 300 Intake, IV Titration 260 Amount Sodium Chloride 0.9% 1, 260 000 ml @ 130 mls/hr IV . Q7H42M STA Rx#:[id number] Oral 220 Other: Voiding Method Toilet - Exam General appearance: The patient is alert, oriented, appears in no acute distress. HET: Head is normocephalic and atraumatic. Conjunctiva pink. Sclera anicteric. Neck: Supple without lymphadenopathy. Abdomen: Soft, nontender, nondistended with bowel sounds. No guarding or rigidity. Extremities: Normal skin color and turgor. No pedal edema Skin: No rashes, no jaundice Neurological: No focal deficits. Alert and oriented. - Labs CBC & Chem 7: 12/19/23 09:05 12/19/23 09:05 Labs: Abnormal Lab Results - Last 24 Hours (Table) 12/18/23 12/18/23 Range/Units 09:10 09:10 RBC 3.65 L (3.80-5.40) m/uL Hgb 11.3 L (11.4-16.0) gm/dL Sodium 136 L (137-145) mmol/L Glucose 69 L (74-99) mg/dL Total Bilirubin 1.9 H (0.2-1.3) mg/dL AST 125 H (14-36) U/L ALT 176 H (4-34) U/L Albumin 3.4 L (3.5-5.0) g/dL Assessment and Plan (1) Dilation of biliary tract Narrative/Plan: 23-year-old female presenting with right upper quadrant abdominal pain and epigastric pain associated with nausea vomiting and elevated LFTs. CT abdomen pelvis shows prominent gallbladder possible cholecystitis with common bile duct dilation up to 1.0 cm. Patient's labs are presenting in a cholestatic pattern and need to consider possible biliary obstruction. Will plan to proceed with ERCP. Procedure discussed with patient and her mother who is at the bedside including risks and benefits. Patient is agreeable to proceed. General surgery following for cholecystitis. Patient is status post ERCP with findings of dilated common bile duct with no filling defects or intrahepatic biliary dilation. Possibility of a biliary stone had passed. Patient is scheduled to undergo cholecystectomy tomorrow with general surgery. Current Visit: Yes Status: Acute Code(s): K83.8 - OTHER SPECIFIED DISEASES OF BILIARY TRACT SNOMED Code(s): 427241332 (2) Transaminitis Current Visit: Yes Status: Acute Code(s): R74.01 - ELEVATION OF LEVELS OF LIVER TRANSAMINASE LEVELS SNOMED Code(s): 728002331 (3) Cholecystitis Current Visit: Yes Status: Acute Code(s): K81.9 - CHOLECYSTITIS, UNSPECIFIED SNOMED Code(s): 24962237 Plan: 1. Continue symptomatic and supportive care 2. Continue with pain management 3. Diet as tolerated 4. Repeat CMP tomorrow 5. Antiemetics as needed 6. Patient is status post ERCP without any filling defects noted 7. Continue with recommendations from general surgery Thank you for this consultation, we will continue to follow. Dr. Cameron Torrez I agree with the dictator's note, documented as a scribe by Lilia Espinal.
[2023-12-19] MEDS: XOPENEX INHALER INHALATION PRN (16:11)
[2023-12-19 16:56] LABS: Glucose,Whole Blood 73 mg/dL (70-110)
[2023-12-19] MEDS: LORazepam 2 MG/ML INJ IM PRN (22:02)
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
[2023-12-20 02:26] LABS: Glucose,Whole Blood 74 mg/dL (70-110)
[2023-12-20 06:09] LABS: Glucose,Whole Blood 69 mg/dL (70-110)
[2023-12-20 06:30] LABS: Glucose,Whole Blood 88 mg/dL (70-110)
--- NOTE | 2023-12-20 07:49 | P.HPADDEND ---
H&P Addendum H&P Addendum Date: 12/20/23 Patient had acute psychosis prior without acute events last night. Will obtain US gallbladder to assess for gallstones with possible cholecystectomy while inpatient.
--- NOTE | 2023-12-20 07:56 | US ---
EXAMINATION TYPE: US gallbladder DATE OF EXAM: 12/20/2023 COMPARISON: 11/22/2020 CLINICAL INDICATION: Female, 23 years old with history of Right upper quadrant pain; Abnormal CT TECHNIQUE: Multiple sonographic images of the right upper quadrant are obtained. FINDINGS: EXAM MEASUREMENTS: Liver Length: 14.6 cm Gallbladder Wall: 0.1 cm CBD: 0.7 cm Right Kidney: 9.0 x 4.2 x 3.8 cm Pancreas: Head obscured by overlying bowel gas Liver: wnl Gallbladder: multiple mobile stones seen Evidence for sonographic Hartman's sign: neg CBD: dilated Right Kidney: No hydronephrosis or masses seen, limited lower pole due to overlying bowel gas IMPRESSION: 1. Multiple gallstones. No diagnostic evidence of cholecystitis. 2. The common bile duct is dilated at 7 mm distal CBD stone not excluded
[2023-12-20 09:38] LABS: ALT 180 U/L (8-44); AST 127 U/L (13-35); Albumin 3.7 g/dL (3.8-4.9); Albumin/Globulin Ratio 1.68 Ratio (1.60-3.17); Alkaline Phosphatase 101 U/L (41-126); BUN/Creat Ratio 6.25 Ratio (12.00-20.00); Calcium 8.9 mg/dL (8.7-10.3); Chloride 107 mmol/L (96-109); Globulin 2.2 g/dL (1.6-3.3); Glucose 69 mg/dL (70-110); Potassium 3.3 mmol/L (3.5-5.5); Sodium 141 mmol/L (135-145); Total Bilirubin 0.9 mg/dL (0.3-1.2); Total Protein 5.9 g/dL (6.2-8.2)
[2023-12-20] MEDS: ACETAMINOPHEN TAB 500 MG TAB PO PRN (09:40)
[2023-12-20] MEDS: POTASSIUM CHLORIDE ER 20 MEQ TAB.ER PO STA (11:03)
[2023-12-20 11:22] LABS: Glucose,Whole Blood 77 mg/dL (70-110)
--- NOTE | 2023-12-20 14:27 | P.PN ---
Subjective Progress Note Date: 12/20/23 Principal diagnosis: Abdominal pain, transaminitis This is a pleasant 23-year-old female who presented to the emergency department with complaints of abdominal pain and nausea and vomiting. She has a past medical history of bariatric surgery and underwent sleeve gastrectomy in February [address] Simmons, asthma and seizure disorder. States she started having abdominal pain on Sunday accompanied by nausea but no vomiting until yesterday. Patient states pain is in the upper abdomen and into the right upper quadrant. On admission she was noted to have elevated LFTs. She had a CT of the abdomen pelvis that reported prominent gallbladder with CBD dilation. Gastroenterology was consulted for elevated LFTs and biliary dilation. She currently states abdominal pain is present still in the right upper quadrant, associated with nausea and vomiting. Admitting labs WBC 6.9 hemoglobin 12.8 platelet count 345,000 sodium 137 potassium 3.7 BUN 14 creatinine 0.7 total b ilirubin 2.2 AST 155 ALT 191 alkaline phosphatase 151 lipase 226. Today's repeat labs WBC 5.7 hemoglobin 11.3 platelet count 265,000 INR 0.9 sodium 136 potassium 3.8 total bilirubin 1.9 AST 125 ALT 176 alkaline phosphatase 121 12/19/2023 Patient seen and examined today as a follow-up. Apparently patient had an aggressive behavior yesterday evening and had to be in 4-point restraints. Currently has sitter at bedside. Yesterday she underwent ERCP with findings of normal-appearing pancreatic duct dilated common bile duct measuring 9 to 10 mm in diameter with no filling defects or intrahepatic biliary dilation seen. Patient states she has no abdominal pain today. She has had no nausea or vom iting. Liver enzymes are trending down. Total bilirubin 1.2 AST 136 ALT 179. Patient is scheduled for cholecystectomy tomorrow. 12/20/2023 Patient seen and examined today as a follow-up. She denies any abdominal pain. No nausea or vomiting. LFTs continue to trend down. She is scheduled for cho lecystectomy today. Objective - Vital Signs Vital signs: Vital Signs Temp 97.8 F 12/20/23 07:34 Pulse 110 H 12/20/23 07:34 Resp 17 12/20/23 07:34 BP 120/81 12/20/23 07:34 Pulse Ox 98 12/20/23 07:34 FiO2 Intake & Output 12/19/23 12/20/2312/19/24 18:59 06:59 18:59 Intake Total 480 Balance 480 Intake: Oral 480 Other: Voiding Method Toilet Toilet # Voids 1 2 - Exam General appearance: The patient is alert, oriented, appears in no acute distress. HET: Head is normocephalic and atraumatic. Conjunctiva pink. Sclera anicteric. Neck: Supple without lymphadenopathy. Abdomen: Soft, nontender, nondistended with bowel sounds. No guarding or rigidity. Extremities: Normal skin color and turgor. No pedal edema Skin: No rashes, no jaundice Neurological: No focal deficits. Alert and oriented. - Labs CBC & Chem 7: 12/19/23 09:05 12/20/23 04:20 Labs: Abnormal Lab Results - Last 24 Hours (Table) 12/19/23 12/19/23 12/20/23 Range/Units 09:05 09:05 06:07 RBC 3.53 L (3.80-5.40) m/uL Hgb 11.0 L (11.4-16.0) gm/dL Hct 32.7 L (34.0-46.0) % Chloride 109 H (98-107) mmol/L Carbon Dioxide 21 L (22-30) mmol/L Glucose 65 L (74-99) mg/dL POC Glucose (mg/dL) 69 L (70-110) mg/dL AST 136 H (14-36) U/L ALT 179 H (4-34) U/L Total Protein 5.8 L (6.3-8.2) g/dL Albumin 3.0 L (3.5-5.0) g/dL Microbiology - Last 24 Hours (Table) 12/18/23 12:16 Blood Culture - Preliminary Blood 12/18/23 12:10 Blood Culture - Preliminary Blood Assessment and Plan (1) Dilation of biliary tract Narrative/Plan: 23-year-old female presenting with right upper quadrant abdominal pain and epigastric pain associated with nausea vomiting and elevated LFTs. CT abdomen pelvis shows prominent gallbladder possible cholecystitis with common bile duct dilation up to 1.0 cm. Patient's labs are presenting in a cholestatic pattern and need to consider possible biliary obstruction. Will plan to proceed with ERCP. Procedure discussed with patient and her mother who is at the bedside including risks and benefits. Patient is agreeable to proceed. General surgery following for cholecystitis. Patient is status post ERCP with findings of dilated common bile duct with no filling defects or intrahepatic biliary dilation. Possibility of a biliary stone had passed. Patient is scheduled to undergo cholecystectomy tomorrow with general surgery. Current Visit: Yes Status: Acute Code(s): K83.8 - OTHER SPECIFIED DISEASES OF BILIARY TRACT SNOMED Code(s): 246837648 (2) Transaminitis Current Visit: Yes Status: Acute Code(s): R74.01 - ELEVATION OF LEVELS OF LIVER TRANSAMINASE LEVELS SNOMED Code(s): 530464495 (3) Cholecystitis Current Visit: Yes Status: Acute Code(s): K81.9 - CHOLECYSTITIS, UNSPECIFIED SNOMED Code(s): 59781421 Plan: 1. Continue symptomatic and supportive care 2. Patient is status post ERCP without any filling defects noted 3. Patient is scheduled for cholecystectomy today with general surgery 4. No further workup indicated by gastroenterology Thank you for this consultation, we will sign off at this time. Dr. Cameron Torrez I agree with the dictator's note, documented as a scribe by Lilia Espinal.
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
[2023-12-20] MEDS: LACTATED RINGERS 1,000 ML IV ONE ×4 (16:41→20:30)
[2023-12-20] MEDS: INDOCYANINE GREEN 25 MG VIAL IV STA (17:08)
[2023-12-20] MEDS: MIDAZOLAM 2 MG/2 ML VIAL IVP ONE (17:43)
[2023-12-20] MEDS ORDERED: GLYCOPYRROLATE 0.2 MG/ML 2 ML VIAL ONE (19:15)
[2023-12-20] MEDS ORDERED: fentaNYL (PF) 50 MCG/ML 2 ML AMP ONE (19:15)
[2023-12-20] MEDS ORDERED: MIDAZOLAM 2 MG/2 ML VIAL ONE (19:15)
[2023-12-20] MEDS ORDERED: ONDANSETRON 4 MG/2 ML VIAL ONE (19:15)
[2023-12-20] MEDS ORDERED: HYDROmorphone (PF) 1 MG/ML ONE (19:15)
[2023-12-20] MEDS ORDERED: LIDOCAINE 1% INJ 10MG/ML (20 ML MDV) ONE (19:15)
[2023-12-20] MEDS ORDERED: KETOROLAC 15 MG/ML 1 ML VIAL ONE (19:15)
[2023-12-20] MEDS ORDERED: PHENYLEPHRINE 10 MG/ML VIAL ONE (19:15)
[2023-12-20] MEDS ORDERED: ROCURONIUM 10 MG/ML (5 ML VIAL) IV ONE (19:15)
[2023-12-20] MEDS ORDERED: PROPOFOL 10 MG/ML 20 ML VIAL IV ONE (19:15)
[2023-12-20] MEDS ORDERED: NEOSTIGMINE 1 MG/ML 10 ML VIAL ONE (19:15)
[2023-12-20] MEDS ORDERED: SUCCINYLCHOLINE CHLORIDE 200 MG/10 ML VIAL IV ONE (19:15)
[2023-12-20] MEDS: SODIUM CHLORIDE 0.9% 50 ML with ceFAZolin 2,000 MG IV ONE (19:18)
[2023-12-20] MEDS: LIDOCAINE 1%-EPI 1:100,000 20 ML VIAL SQ ONE (20:08)
--- NOTE | 2023-12-20 20:44 | P.PN ---
Progress Note - Text Progress Note Date: 12/20/23 Follow-up note Subjective: the patient reported feeling calm. She noted having no outbursts since yesterday. She denied being angry, agitated or oppositional. As per nursing staff, the patient has been cooperative and taking her medications and following treatment recommendations. She noted that patient has had no behavioral disturbance since the last incidence.. Objective: MSE: Alert and attentive. Orientation X3. Pleasant and cooperative. Psychomotor activity: Normal. Speech: was normal tone, quality, and quantity Mood: I feel good Affect: Consistent with mood. SI or HI- None Thought content- normal Thought process- normal Perceptual disturbance- none Cognition- Intact Judgement- Intact Judgement and Insight- Good IMP: the patient has shown good improvement. She was calm during this visit She is no more agitated aggressive or angry. She appeared in good spirits. She denied any thoughts of hurting self or others. Overall, patient has stabilized. REC: Discontinue 1:1 sitter. She may continue 1;1 sitter for safety as per directions of the attending physician. Continue current medications. Patient will benefit by out-patient psychiatric follow-up after discharge. Will Sign off the case. Please reconsult, if the mental status changes. Eliseo Purvis MD Psychiatry
--- NOTE | 2023-12-20 20:45 | P.OP ---
Date of Procedure: 12/20/23 Description of Procedure: SURGEON: LUDIN ADAMS MD PREOPERATIVE DIAGNOSES: 1. Choledocholithiasis with cholelithiasis 2. Acute cholecystitis due to gallstones 3. Acute psychosis 4. Depressive disorder 5. Generalized anxiety disorder 6. Status post sleeve gastrectomy 7. Gastroesophageal reflux disease 8. Asthma 9. Seizure disorder 10. ADD with ADHD 11. Bipolar disorder 12. Panic attack disorder 13. Status post ERCP POSTOPERATIVE DIAGNOSES: 1. Choledocholithiasis with cholelithiasis 2. Acute cholecystitis due to gallstones 3. Acute psychosis 4. Depressive disorder 5. Generalized anxiety disorder 6. Status post sleeve gastrectomy 7. Gastroesophageal reflux disease 8. Asthma 9. Seizure disorder 10. ADD with ADHD 11. Bipolar disorder 12. Panic attack disorder 13. Status post ERCP OPERATION: Robotic-assisted da Ismael Xi laparoscopic cholecystectomy, multiport with FIREFLY ESTIMATED BLOOD LOSS: 5 mL. SPECIMENS REMOVED: Gallbladder. COMPLICATIONS: None. OPERATIVE FINDINGS: 1. Multiple gallstones within gallbladder with thickened gallbladder wall consistent with cholecystitis 2. Minimal manipulation of the gallbladder to prevent further choledocholithiasis 3. Dilated common bile duct 4. Avoidance of reflecting gallbladder over the dome of the liver to prevent translocation of gallstones into the common bile duct INDICATIONS: The patient is a 23-year-old female who presents with symptomatic gallstones causing choledocholithiasis including acute cholecystitis. Robotic assisted laparoscopic approach was described. Benefits and risks of the procedure including but not limited to bleeding, infection, injury to the biliary tree was described. Informed consent was obtained. DESCRIPTION OF PROCEDURE: Patient was brought to the operating room, placed in supine position. After general induction, the abdomen had been prepped and draped in standard sterile fashion. The robotic da Ismael XI system was primed. After a timeout protocol was performed, the patient had been prepped and draped in standard sterile fashion. The patient was injected with indocyanine green. A 5 mm 0 degrees laparoscopic trocar entry was performed along the left upper quadrant. The abdomen insufflated to 15 mmHg pressure which was tolerated well. Diagnostic laparoscopy demonstrated no injury to bowel viscera or mesentery. The liver surface was unremarkable. Next, two 8 mm robotic ports were placed along the right upper abdomen. The camera 8-mm port was maintained along the epigastrium. Another 8 mm port was placed along the left upper abdominal wall after exchanging the 5 mm port. Please note that the ports were placed at least 10 to 15 cm away from the target anatomy of the gallbladder. The robot was docked along the left lateral abdomen. The patient was repositioned in reverse Trendelenburg position. Using a grasper for arm 3, a grasper for arm 4, including hook cautery for arm 1, the robotic system was docked and primed as described. Instruments were interchanged by the interior design assistant including hook cautery, Bovie cau grady and clip appliers. I had sat at the console. Due to her multiple gallstones, care was taken to avoid any moderate manipulation of the gallbladder and increased risk for additional choledocholi thiasis. Due to the hydropic nature of the gallbladder, the gallbladder was from the hepatic fossa starting from the fundus towards the infundibulum while keeping the fundus along the dependent portion. The gallbladder was not reflected over the dome of the liver to minimize mobilization of the gallstones. The infundibulum and cystic duct were dissected free from surrounding tissues. The cystic duct was isolated. FIREFLY was used to identify the cystic artery and cystic structures. A critical view of safety was obtained. Large PLASTIC clips were used throughout the entire case. Using a clip power grader operator, 2 clips were placed at the junction of the infundibulum and cystic duct. The cystic duct was divided between clips. Next, the cystic artery was similarly clipped and cauterized. Total of 3 clips placed. Electro-Bovie cautery was used to remove the gallbladder from the hepatic fossa. Hemostasis was checked and found to be adequate. The robot was undocked. I re-scrubbed into the case. Using a 10 mm Endo Catch bag via the left upper quadrant incision, the specimen was removed from the abdominal cavity. All pneumoperitoneum instruments were evacuated from the abdominal cavity. The incisions were reapproximated using 4-0 Monocryl in an interrupted subcuticular fashion. Fascial defects were less than 8 mm in size. Please note along the trocar sites, local anesthetic was placed as a field block prior to insertion of all instruments. Liquid glue was applied to the skin. At the end of the procedure needle, sponge, and instrument count had been verified correct by the surgical appliance fitter. The patient was transferred to postanesthesia care unit in stable condition. Intraoperative films were shared with the patient's family.
[2023-12-20] MEDS: ACETAMINOPHEN IV (For NPO) 1,000 MG in EMPTY BAG 1 BAG IVPB ONE (21:55)
[2023-12-20 22:27] LABS: Glucose,Whole Blood 86 mg/dL (70-110)
[2023-12-21] MEDS: KETOROLAC 15 MG/ML 1 ML VIAL IVP SCH (00:04)
[2023-12-21 07:10] LABS: Glucose,Whole Blood 64 mg/dL (70-110)
[2023-12-21 07:32] LABS: HCT 30.8 % (34.0-46.0); HGB 10.2 gm/dL (11.4-16.0); MCHC 33.2 g/dL (31.0-37.0); MCV 93.2 fL (80.0-100.0); Mean Platelet Volume 7.4; Platelet Count 250 k/uL (150-450); RBC 3.31 m/uL (3.80-5.40); RDW 12.6 % (11.5-15.5); WBC 6.7 k/uL (3.8-10.6)
[2023-12-21 07:46] LABS: ALT 178 U/L (4-34); AST 118 U/L (14-36); African American GFR (CKD) >90 (>60 ml/min/1.73 sqM); Albumin/Globulin Ratio 1.1; Alkaline Phosphatase 81 U/L (38-126); Anion Gap 8 mmol/L; Blood Urea Nitrogen 6 mg/dL (7-17); Calcium 8.5 mg/dL (8.4-10.2); Carbon Dioxide 21 mmol/L (22-30); Chloride 109 mmol/L (98-107); Globulin 2.7 g/dL; Glucose 64 mg/dL (74-99); Lipase 68 U/L (23-300); Non-African American GFR(CKD) >90 (>60 ml/min/1.73 sqM); Potassium 3.6 mmol/L (3.5-5.1); Sodium 138 mmol/L (137-145); Total Bilirubin 0.8 mg/dL (0.2-1.3); Total Protein 5.7 g/dL (6.3-8.2)
[2023-12-21] MEDS: ENOXAPARIN 40 MG/0.4 ML SYRINGE SQ SCH (09:50)
[2023-12-21 11:47] LABS: Glucose,Whole Blood 87 mg/dL (70-110)
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
[2023-12-21] MEDS: DEXTROSE 5%-0.9% NACL 1,000 ML IV SCH (12:19)
[2023-12-21] MEDS: DOCUSATE 100 MG CAP PO SCH (12:19)
[2023-12-21] MEDS: TAMSULOSIN 0.4 MG CAP.ER.24H PO SCH (16:21)
--- NOTE | 2023-12-21 16:29 | P.PN ---
Subjective Progress Note Date: 12/21/23 CHIEF COMPLAINT: Abdominal pain HISTORY OF PRESENT ILLNESS: Patient postop day #1 status post laparoscopic cholecystectomy. Patient tolerating diet. Her pain is controlled. Denies any nausea or vomiting. She is having issues with urinary retention. She was straight cathed once and still was having urinary retention required had Shipman catheter placed. Afebrile. Mildly tachycardic. WBC 6.7 LFTs trending down PHYSICAL EXAM: VITAL SIGNS: Reviewed GENERAL: Well-developed in no acute distress. HEENT: No sclera icterus. Extraocular movements grossly intact. Moist buccal mucosa. Head is atraumatic, normocephalic. Hears conversational speech. No nasal drainage. NECK: Supple without lymphadenopathy. CHEST: Non-labored respirations and equal bilateral excursions. CARDIOVASCULAR: Palpable 2+ radial pulses. ABDOMEN: Soft. Nondistended. Incision sites clean dry and intact MUSCULOSKELETAL: No clubbing or cyanosis. NEUROLOGIC: No focal or lateralizing signs. Cranial nerves II through XII grossly intact. PSYCH: Alert and oriented to person, place and time. SKIN: Well perfused. Good skin turgor. ASSESSMENT: 1. Choledocholithiasis with cholelithiasis 2. Acute cholecystitis due to gallstones 3. Acute psychosis 4. Depressive disorder 5. Generalized anxiety disorder 6. Status post sleeve gastrectomy 7. Gastroesophageal reflux disease 8. Asthma 9. Seizure disorder 10. ADD with ADHD 11. Bipolar disorder 12. Panic attack disorder 13. Status post ERCP 14. Urinary retention PLAN: -Continue low-fat diet -Shipman catheter placed for urinary retention. Started patient on Flomax -Encourage patient to ambulate -Continue pain management Physician Behavioral Psychologist note has been reviewed by physician. Signing provider agrees with the documented findings, assessment, and plan of care. Objective - Vital Signs Vital signs: Vital Signs Temp 98.5 F 12/21/23 13:39 Pulse 118 H 12/21/23 13:39 Resp 16 12/21/23 13:39 BP 136/79 12/21/23 13:39 Pulse Ox 99 12/21/23 13:39 FiO2 Intake & Output 12/20/23 12/21/23 12/21/23 18:59 06:59 18:59 Intake Total 2350 Output Total 5 Balance 2345 Intake: IV 2350 Output: Estimated Blood Loss 5 Other: Voiding Method Toilet # Voids 2 - Labs CBC & Chem 7: 12/21/23 06:58 12/21/23 06:58 Labs: Abnormal Lab Results - Last 24 Hours (Table) 12/21/23 12/21/23 12/21/23 Range/Units 06:58 06:58 07:04 RBC 3.31 L (3.80-5.40) m/uL Hgb 10.2 L (11.4-16.0) gm/dL Hct 30.8 L (34.0-46.0) % Chloride 109 H (98-107) mmol/L Carbon Dioxide 21 L (22-30) mmol/L BUN 6 L (7-17) mg/dL Glucose 64 L (74-99) mg/dL POC Glucose (mg/dL) 64 L (70-110) mg/dL AST 118 H (14-36) U/L ALT 178 H (4-34) U/L Total Protein 5.7 L (6.3-8.2) g/dL Albumin 3.0 L (3.5-5.0) g/dL Microbiology - Last 24 Hours (Table) 12/18/23 12:16 Blood Culture - Preliminary Blood 12/18/23 12:10 Blood Culture - Preliminary Blood
[2023-12-21 16:58] LABS: Glucose,Whole Blood 121 mg/dL (70-110)
[2023-12-21] MEDS: LORazepam 1 MG/0.5 ML VIAL IM PRN (18:32)
[2023-12-21 20:51] LABS: Glucose,Whole Blood 120 mg/dL (70-110)
[2023-12-22 03:25] LABS: Glucose,Whole Blood 91 mg/dL (70-110)
[2023-12-22 06:25] LABS: Glucose,Whole Blood 161 mg/dL (70-110)
[2023-12-22 11:43] LABS: Glucose,Whole Blood 116 mg/dL (70-110)
--- NOTE | 2023-12-22 14:18 | P.PN ---
Subjective Progress Note Date: 12/22/23 NAEON. No N/V. Well controlled incisional abdominal pain. No F/C. No SOB or CP. Admits to flatus no BM. Tolerating diet. Objective - Vital Signs Vital signs: Vital Signs Temp 98.7 F 12/22/23 08:00 Pulse 82 12/22/23 08:00 Resp 16 12/22/23 08:00 BP 107/71 12/22/23 08:00 Pulse Ox 98 12/22/23 08:00 FiO2 Intake & Output 12/21/23 12/22/23 12/22/23 18:59 06:59 18:59 Intake Total 1100 Output Total 1250 350 Balance -150 -350 Intake: Intake, IV Titration 500 Amount Dextrose 5%-0.9% NaCl 1, 500 000 ml @ 50 mls/hr IV . Q20H [facility] Rx#:[id number] Oral 600 Output: Urine 1250 350 Uretheral ([facility]) 600 Other: Voiding Method Indwelling Catheter - Exam GEN: AxO, NAD Pulm: non-labored respirations Abd: soft, non-tender, non-distended. No guarding/rebound/rigidity Incision: C/D/I no erythema or fluctuence appreciated Extrem: no edema seen - Labs CBC & Chem 7: 12/21/23 06:58 12/21/23 06:58 Labs: Abnormal Lab Results - Last 24 Hours (Table) 12/21/23 12/21/23 12/22/23 Range/Units 16:56 20:22 06:06 POC Glucose (mg/dL) 121 H 120 H 161 H (70-110) mg/dL 12/22/23 Range/Units 11:42 POC Glucose (mg/dL) 116 H (70-110) mg/dL Microbiology - Last 24 Hours (Table) 12/18/23 12:16 Blood Culture - Preliminary Blood 12/18/23 12:10 Blood Culture - Preliminary Blood Assessment and Plan Assessment: Patient is a 23F who is s/p laparoscopic cholecystectomy Plan: -Diet as tolerated -IVF hydration -PRN pain and nausea control -DVT/GI PPx -DC marks if able to void spontaneously okay to dc home Magdiel Kilgore MD General Surgery
--- NOTE | 2023-12-22 14:25 | P.PN ---
Subjective Progress Note Date: 12/22/23 Subjective: Patient seen and examined at bedside. No acute events overnight. Denies any further nausea, vomiting, urinary or bowel complaints. No bowel movements as of yet, passing gas. Pertinent positives and negatives as discussed above, a complete review of systems was performed and all other systems are negative. Vitals Signs Reviewed. General: Nontoxic, no distress, appears at stated age Derm: Warm, dry Head: Atraumatic, normocephalic, symmetric Eyes: EOMI, no lid lag, anicteric sclera Mouth: No lip lesion, mucus membranes moist Cardiovascular: S1S2 reg, no murmur Lungs: CTA bilateral, no rhonchi, no rales, no accessory muscle use Abdominal: Soft, nontender to palpation, no guarding, no appreciable organomegaly Ext: No gross muscle atrophy, no edema, no contractures Neuro: CN II-XI grossly intact, no focal neuro deficits Psych: Alert, oriented, appropriate affect Data Reviewed Today: Pertinent Labs: Blood sugars range between 91-1 61 Imaging: No new imaging Assessment and Plan: Acute cholecystitis, status post laparoscopic cholecystectomy Dilated CBD, status post MRCP History of sleeve gastrectomy Transaminitis -Surgery note reviewed, continue current management, on low-fat diet -Continue IV fluids -On docusate 100 twice daily, Dilaudid as needed IV, Tylenol oral as needed, Zofran IV as needed, pantoprazole 40 daily Urinary retention -Consider Shipman discontinuation, voiding trial, also on tamsulosin 0.4 daily per general surgery Hypoglycemia, resolved: Accuchecks ACHS. D5 NS at 50 cc/hr. Bipolar disorder with aggressive behavior -Psychiatry was consulted, no changes recommended -Continue Seroquel 100 twice daily, lumateperone 40 2 at night, Prozac 40 daily, BuSpar 10 daily, 5 at bedtime, Strattera 80 daily, Haldol as needed, Ativan as needed, gabapentin 100 twice daily Resolved: Hypokalemia DVT ppx: Lovenox Code status: Full code Anticipated discharge place: Pending clinical course Anticipated discharge time: Pending clinical course Objective - Vital Signs Vital signs: Vital Signs Temp 98.7 F 12/22/23 08:00 Pulse 82 12/22/23 08:00 Resp 16 12/22/23 08:00 BP 107/71 12/22/23 08:00 Pulse Ox 98 12/22/23 08:00 FiO2 Intake & Output 12/21/23 12/22/23 12/22/23 18:59 06:59 18:59 Intake Total 1100 Output Total 1250 350 Balance -150 -350 Intake: Intake, IV Titration 500 Amount Dextrose 5%-0.9% NaCl 1, 500 000 ml @ 50 mls/hr IV . Q20H [facility] Rx#:[id number] Oral 600 Output: Urine 1250 350 Uretheral ([place]) 600 Other: Voiding Method Indwelling Catheter - Labs CBC & Chem 7: 12/21/23 06:58 12/21/23 06:58 Labs: Abnormal Lab Results - Last 24 Hours (Table) 12/21/23 12/21/23 12/22/23 Range/Units 16:56 20:22 06:06 POC Glucose (mg/dL) 121 H 120 H 161 H (70-110) mg/dL 12/22/23 Range/Units 11:42 POC Glucose (mg/dL) 116 H (70-110) mg/dL Microbiology - Last 24 Hours (Table) 12/18/23 12:16 Blood Culture - Preliminary Blood 12/18/23 12:10 Blood Culture - Preliminary Blood
[2023-12-22 17:07] LABS: Glucose,Whole Blood 83 mg/dL (70-110)
[2023-12-22] MEDS: TAMSULOSIN 0.4 MG CAP.ER.24H PO STA (18:40)
[2023-12-22 20:49] VITALS: BP 128/86; PULSE 94; RESP 18; TEMP 98.3
== END 2023-12-22 21:34 | disposition home or self-care (01) | DRG 418 ==
LOC: EC 22:18 → 5NMEDONC 12-18 04:26 → 1SOBS 12-18 13:50 → 4SSUR 12-19 06:42
PROVIDERS: ADMIT Surgery Plastic and Reconstructive Surgery; ATTEND Surgery Plastic and Reconstructive Surgery
PROC: 0FJB8ZZ Inspection of Hepatobiliary Duct, Via Natural or Artificial Opening Endoscopic (ICD-10-PCS; 2023-12-18)
PROC: 8E0W4CZ Robotic Assisted Procedure of Trunk Region, Percutaneous Endoscopic Approach (ICD-10-PCS; 2023-12-20)
PROC: BF52200 Other Imaging of Gallbladder using Fluorescing Agent, Indocyanine Green Dye, Intraoperative (ICD-10-PCS; 2023-12-20)
PROC: 0FT44ZZ Resection of Gallbladder, Percutaneous Endoscopic Approach (ICD-10-PCS; principal; 2023-12-20 07:30)
DX: K80.10 Calculus of gallbladder with chronic cholecystitis without obstruction (principal); F23 Brief psychotic disorder; K21.9 Gastro-esophageal reflux disease without esophagitis; R74.01 Elevation of levels of liver transaminase levels; E11.649 Type 2 diabetes mellitus with hypoglycemia without coma; Z78.1 Physical restraint status; Z98.84 Bariatric surgery status; F41.9 Anxiety disorder, unspecified; F90.9 Attention-deficit hyperactivity disorder, unspecified type; F41.1 Generalized anxiety disorder; F06.70 Mild neurocognitive disorder due to known physiological condition without behavioral disturbance; G40.909 Epilepsy, unspecified, not intractable, without status epilepticus; G90.A Postural orthostatic tachycardia syndrome [POTS]; F91.3 Oppositional defiant disorder; F81.0 Specific reading disorder; E87.6 Hypokalemia
CPT/HCPCS: 36415; 43260; 74177; 74330; 76705; 80053; 81001; 81025; 82150; 83605; 83690; 85025; 85027; 85610; 87040; 88304; 94640; 96361; 96365; 96375; 96376; 99285